=== PATIENT | male | born 1950 | race Caucasian/White ===

== ENCOUNTER 2016-12-18 10:14 | Inpatient (IN) | payer MEDICARE ==
[2016-12-18] VITALS (21 sets, daily range): BP systolic 105–180; BP diastolic 57–86; PULSE 67–80; RESP 16–26; TEMP 98.4–98.7; O2SAT 88–99
[~2016-12-18] VITALS: Ht 182.9 cm; Wt 110.4 kg
--- NOTE | 2016-12-18 10:29 | PD ---
HPI Chief Complaint: Head Injury Time Seen by Provider: 10:28 Travel History International Travel<30 days: No Contact w/Intl Traveler<30days: No Traveled to known affect area: No History of Present Illness HPI 66-year-old male came to the emergency room with history of head injury from a fall. Patient says that she was going to sit down in a chair when he lost control and fell forward and hit his head on another chair in front of him. Patient insists that he did not have a syncopal episode and did not pass out after hitting his head either. No history of dizziness. He does appear to be short of breath as he is talking. He has history of COPD. His oxygen saturation was 86% on room air and with 2 L of nasal cannula continues to be 88% . He is answering questions appropriately. However his eyes are closed and opens when I talk to him. Patient is on Plavix. Upon asking he said he had a fever last night but did not take temperature. He does have some sore throat. Patient requires oxygen during night. He was bleeding a lot from his wound which had some dressing on it. However the dressing was completely soaked been trickling down onto his face. He seems to be falling asleep as he is talking. PFSH Past Medical History Narrative Medical List of his past medical history as reviewed from the nursing note. Hx Anticoagulant Therapy: Yes Cardiovascular Problems: Yes Social History Tobacco Use: No Allergies-Medications (Allergen,Severity, Reaction): Coded Allergies: No Known Allergies (Unverified , 12/18/16) Comments No known allergies. Reported Meds & Prescriptions Reported Meds & Active Scripts Active Reported Glucotrol XL (Glipizide) 2.5 Mg Delores 2.5 Mg PO HS Take with breakfast or first main meal of the day Glucotrol XL (Glipizide) 2.5 Mg Delores 5 Mg PO DAILY Take with breakfast or first main meal of the day Cozaar (Losartan Potassium) 25 Mg Tab 25 Mg PO DAILY Januvia (Sitagliptin Phosphate) 100 Mg Tab 100 Mg PO DAILY Clopidogrel (Clopidogrel Bisulfate) 75 Mg Tab 75 Mg PO DAILY Lexapro (Escitalopram Oxalate) Unknown Strength Tab 10 Mg PO DAILY Narrative Medication List of his home medications reviewed from the nursing note. Review of Systems Except as stated in HPI: all other systems reviewed are Neg Physical Exam Narrative GENERAL: Lethargic, moderate respiratory distress, wakes up and answers questions appropriately. Blood on his face from the head wound SKIN: Warm and dry. HEAD: Large 5 cm horizontal laceration which is deep exposing the skull underneath on the left side of his forehead above the eyebrow. It's oozing blood constantly. EYES: Pupils equal and round. No scleral icterus. No injection or drainage. ENT: No nasal bleeding or discharge. Mucous membranes pink and moist. NECK: Trachea midline. No JVD. CARDIOVASCULAR: Regular rate and rhythm. No murmur appreciated. RESPIRATORY: No accessory muscle use. Clear to auscultation. Breath sounds equal bilaterally. GASTROINTESTINAL: Abdomen soft, non-tender, nondistended. Hepatic and splenic margins not palpable. MUSCULOSKELETAL: No obvious deformities. No clubbing. No cyanosis. Bilateral pedal edema. NEUROLOGICAL: GCS is 14. No obvious cranial nerve deficits. Motor grossly within normal limits. Normal speech. PSYCHIATRIC: Appropriate mood and affect; insight and judgment normal. Data Data Last Documented VS Vital Signs Date Time Temp Pulse Resp B/P Pulse Ox O2 Delivery O2 Flow Rate FiO2 12/18/16 13:40 99 100 12/18/16 13:35 73 16 105/58 Auto-Vent 12/18/16 12:55 15 12/18/16 10:16 98.4 Orders Basic Metabolic Panel (Bmp) (12/18/16 11:14) Complete Blood Count With Diff (12/18/16 11:14) Lidocai-Epi 1%-1:100,000 Inj (Xylocaine- (12/18/16 11:15) Tetanus-Diphther Tox Peds Inj (Tetanus-D (12/18/16 11:15) Prothrombin Time / Inr (Pt) (12/18/16 11:14) Ct Brain W/O Iv Contrast(Rout) (12/18/16 ) Electrocardiogram (12/18/16 ) Document Control Supervisor / Telemetry PEREZ.Q8H (12/18/16 11:14) Ecg Monitoring (12/18/16 11:14) Iv Access Insert/Monitor (12/18/16 11:14) Oximetry (12/18/16 11:14) Oxygen Administration (12/18/16 11:14) Methylprednisolone So Succ Inj (Solumedr (12/18/16 11:15) Albuterol-Ipratropium Neb (Duoneb Neb) (12/18/16 11:15) Sodium Chloride 0.9% Flush (Ns Flush) (12/18/16 11:15) Troponin I (12/18/16 11:14) B-Type Natriuretic Peptide (12/18/16 11:14) Chest, Single Ap (12/18/16 ) Rdvs-Ljf-Ncaine (Booster) Inj (Boostrix (12/18/16 11:40) Lorazepam Inj (Ativan Inj) (12/18/16 12:00) Tetanus/Diphtheria Tox Adult (Tetanus/Di (12/18/16 12:00) Furosemide Inj (Lasix Inj) (12/18/16 12:00) Arterial Blood Gas (Abg) (12/18/16 ) Propofol 1000 Mg/100 Ml Inj (Diprivan 10 (12/18/16 13:26) Succinylcholine Inj (Quelicin Inj) (12/18/16 13:45) Etomidate Inj (Amidate Inj) (12/18/16 13:45) Propofol 1000 Mg/100 Ml Inj (Diprivan 10 (12/18/16 13:45) ^ Infusion (12/18/16 13:36) RASS (12/18/16 13:36) Neurological Rass Scale PEREZ.Q2H (12/18/16 13:36) Urinary Catheter Insert/Apply (12/18/16 13:36) ^ Orogastric Tube (12/18/16 13:36) Sodium Chlor 0.9% 1000 Ml Inj (Ns 1000 M (12/18/16 13:45) Arterial Blood Gas (Abg) (12/18/16 14:15) Chest, Single Ap (12/18/16 ) Admit Order (Ed Use Only) (12/18/16 13:50) Labs Laboratory Tests Test 12/18/16 12/18/16 11:25 12:10 White Blood Count 7.8 TH/MM3 Red Blood Count 5.37 MIL/MM3 Hemoglobin 16.2 GM/DL Hematocrit 48.0 % Mean Corpuscular Volume 89.3 FL Mean Corpuscular Hemoglobin 30.1 PG Mean Corpuscular Hemoglobin 33.8 % Concent Red Cell Distribution Width 15.4 % Platelet Count 196 TH/MM3 Mean Platelet Volume 8.5 FL Neutrophils (%) (Auto) 61.5 % Lymphocytes (%) (Auto) 22.3 % Monocytes (%) (Auto) 13.9 % Eosinophils (%) (Auto) 1.7 % Basophils (%) (Auto) 0.6 % Neutrophils # (Auto) 4.8 TH/MM3 Lymphocytes # (Auto) 1.7 TH/MM3 Monocytes # (Auto) 1.1 TH/MM3 Eosinophils # (Auto) 0.1 TH/MM3 Basophils # (Auto) 0.0 TH/MM3 CBC Comment DIFF FINAL Differential Comment Prothrombin Time 12.7 SEC Prothromb Time International 1.1 RATIO Ratio Sodium Level 141 MEQ/L Potassium Level 3.7 MEQ/L Chloride Level 102 MEQ/L Carbon Dioxide Level 33.7 MEQ/L Anion Gap 5 MEQ/L Blood Urea Nitrogen 15 MG/DL Creatinine 0.88 MG/DL Estimat Glomerular Filtration 87 ML/MIN Rate Random Glucose 114 MG/DL Calcium Level 9.0 MG/DL Troponin I 0.03 NG/ML B-Type Natriuretic Peptide 36 PG/ML Lipase 114 U/L Blood Gas Puncture Site RT RADIAL Blood Gas Patient Temperature 98.6 Blood Gas HCO3 29 mmol/L Blood Gas Base Excess 3.1 mmol/L Blood Gas Oxygen Saturation 85 % Arterial Blood pH 7.28 Arterial Blood Partial 64 mmHg Pressure CO2 Arterial Blood Partial 64 mmHG Pressure O2 Arterial Blood Oxygen Content 20.2 Vol % Arterial Blood 4.2 % Carboxyhemoglobin Arterial Blood Methemoglobin 2.0 % Blood Gas Hemoglobin 16.9 G/DL Oxygen Delivery Device NASAL CANNULA Blood Gas Liter Flow 4 L/M MDM Medical Decision Making Medical Screen Exam Complete: Yes Emergency Medical Condition: Yes Medical Record Reviewed: Yes Interpretation(s) Twelve-lead EKG was reviewed by me. Normal sinus rhythm, left axis deviation, left bundle branch block. Heart rate of 74 bpm. Differential Diagnosis Intracranial bleed, complex laceration, COPD exacerbation, pneumonia, CHF Narrative Course 11:49 AM awaiting for the blood test result. Awaiting for the CAT scan of the head to be done and resulted. I ordered 2 DuoNeb times and IV Solu-Medrol. Patient tolerated the laceration repair well. 12:19 PM patient was taken to CT but refused to lay flat since it makes him acutely short of breath. They had To bring him back. I spoke with the patient and he says that he's been feeling like this for past 3-4 months. At this point his symptoms sound more like congestive heart failure. I have ordered 40 mg of Lasix IV. I will also given him 0.5 mg of IV Ativan so that the scan can be done. I'm really concerned about intracranial bleed given his mental status and his head injury. Hence I definitely want the CT scan. When he comes back I will reevaluate him. 1:32 PM I had ordered a blood gas which was done just before patient went to CT and it showed respiratory acidosis. I had ordered a BiPAP and patient was tolerating BiPAP okay until half an hour ago when he got very somnolent and hard to awake. GCS at this point was 9. Patient was drooling. I decided to intubate him. Patient has tolerated intubation well. Awaiting for a chest x- ray for tube confirmation. I've ordered a second ABG 45 minutes after the ventilator. Awaiting for the commercial real estate manager to call back for admission. Critical Care Narrative Aggregate critical care time was 60 minutes. Time to perform other separately billable procedures was not included in the critical care time. My time did not include minutes spent treating any other patients simultaneously or on activities that did not directly contribute to the patient's treatment. The services I provided to this patient were to treat and/or prevent clinically significant deterioration that could result in: Altered mental status, respiratory distress, respiratory failure, ventilator management I provided critical care services requiring my management, as noted below: Chart data review, documentation time, medication orders and management, vital sign assessments/reviewing monitor data, ordering and reviewing lab tests, ordering and interpreting/reviewing x-rays and diagnostic studies, care of the patient and discussion of the patient with the admitting physicians. Procedures Procedure Narrative Complex laceration repair: The wound was cleaned with gauze soaked with sterile saline. Wound was infiltrated with 7 mL of 1% lidocaine with epi. 5 interrupted sutures with 3-0 Prolene was used. I applied deeper bite to get the subcutaneous tissue as well. Bleeding was well controlled after that and wound edges approximated well. Triple antibiotic ointment was applied and wound was wrapped with gauze and Curlex. Ice bag was applied to minimize subcutaneous hematoma. Patient tolerated the procedure well. After the risks and benefits were discussed the following procedure was performed: INTUBATION: The patient was put in optimal position for the procedure. Rapid sequence intubation was initiated by me using 20 milligrams of etomidate IV and 100 milligrams of succinylcholine IV. The patient was intubated with a 7.5 cuffed endotracheal tube. Tube placement was confirmed by visualization of the tube and balloon passing through the cords, capnometry and subsequent chest x-ray. Breath sounds were equal and well aerated bilaterally postintubation. No breath sounds over stomach. Patient tolerated procedure well. EKG Prior to Arrival: No Physician Communication Physician Communication Dr. Westbrook Diagnosis Primary Impression: Respiratory failure Qualified Code: J96.01 - Acute respiratory failure with hypoxia and hypercapnia Additional Impressions: Respiratory acidosis Fall Qualified Code: W19.XXXA - Fall, initial encounter Head injury Qualified Code: S09.90XA - Head injury, initial encounter Laceration of forehead, left, complicated Qualified Code: S01.81XA - Laceration of forehead, left, complicated, initial encounter Admitting Information Admitting Physician Requests: Admit Bre Leung MD Dec 18, 2016 10:29
[2016-12-18] MEDS ORDERED: LEXA10TA PO (10:32)
[2016-12-18] MEDS ORDERED: COZA25TA PO (10:46)
[2016-12-18] MEDS ORDERED: CLOP75TA PO (10:46)
[2016-12-18] MEDS ORDERED: SITA1TAB2 PO (10:46)
[2016-12-18] MEDS ORDERED: [UNRECOGNIZED DRUG - CODE] PO ×2 (10:46→10:47)
[2016-12-18] MEDS ORDERED: TETANUS/DIPHTHERIA TOXOID PEDIATRIC 0.5 ML VIAL IM ONE (11:15)
[2016-12-18] MEDS ORDERED: LIDOCAINE 1%/EPINEPHrine 1:100,000 SOLN 20 ML VIAL INFIL ONE (11:15)
[2016-12-18] MEDS ORDERED: methylPREDNISolone SOD SUCC 125 MG/2 ML VIAL IVP ONE (11:15)
[2016-12-18] MEDS ORDERED: SODIUM CHLORIDE 0.9% FLUSH 5 ML FLUSH IVF PRN (11:15)
[2016-12-18] MEDS: RESP: ALBUTEROL 2.5 MG/IPRATROPIUM 0.5 MG NEB (SCH) INH ×4 (11:37→23:54)
[2016-12-18 11:38] LABS: AUTOMATED NEUTROPHIL # 4.8 TH/MM3 (1.8-7.7); BASOPHIL % 0.6 % (0.0-2.0); EOSINOPHIL # 0.1 TH/MM3 (0-0.4); EOSINOPHIL % 1.7 % (0.0-4.0); HEMO FLAGS DIFF FINAL; LYMPH % 22.3 % (9.0-44.0); LYMPHOCYTE # 1.7 TH/MM3 (1.0-4.8); MEAN CELL VOLUME 89.3 FL (80.0-100.0); MEAN CORPUSCULAR HEMOGLOBIN 30.1 PG (27.0-34.0); MEAN CORPUSCULAR HGB CONC 33.8 % (32.0-36.0); MONO % 13.9 % (0.0-8.0); NEUT % 61.5 % (16.0-70.0); PLATELET COUNT 196 TH/MM3 (150-450); RED BLOOD COUNT 5.37 MIL/MM3 (4.50-5.90); RED CELL DISTRIBUTION WIDTH 15.4 % (11.6-17.2); WHITE BLOOD COUNT 7.8 TH/MM3 (4.0-11.0)
[2016-12-18] MEDS ORDERED: DIPHTH/TETANUS/ACEL PERTUSSIS (BOOSTER) 0.5 ML VIAL/PFS IM ONE (11:40)
[2016-12-18 11:49] LABS: INTERNATIONAL NORMALIZED RATIO 1.1 RATIO; PROTHROMBIN TIME - PATIENT 12.7 SEC (9.8-11.6)
[2016-12-18] MEDS ORDERED: FUROSEMIDE 40 MG/4 ML VIAL IV PUSH ONE (12:00)
[2016-12-18] MEDS ORDERED: LORazepam 2 MG/ML VIAL IV PUSH ONE (12:00)
[2016-12-18] MEDS ORDERED: TETANUS/DIPHTHERIA TOXOID ADULT 0.5 ML VIAL IM ONE (12:00)
--- NOTE | 2016-12-18 12:01 | RADRPT ---
EXAM DATE/TIME: 12/18/2016 11:44 [facility] COMPARISON: No previous studies available for comparison. INDICATIONS : Head injury, fall from standing. MEDICAL HISTORY : Aneurysm, abdominal. Chronic obstructive pulmonary disease. Diabetes. SURGICAL HISTORY : Abdominal aortic aneurysm repair. ENCOUNTER: Initial ACUITY: 1 day PAIN SCORE: 0/10 LOCATION: Forehead. FINDINGS: A single view of the chest demonstrates diminished lung volumes and bibasilar atelectasis. The cardio mediastinal contours are unremarkable. Osseous structures are intact. CONCLUSION: Diminished lung volumes and bibasilar atelectasis. Teodoro Lawson MD on December 18, 2016 at 11:59 Board Certified Radiologist. This report was verified electronically.
[2016-12-18 12:02] LABS: BICARBONATE 33.7 MEQ/L (21.0-32.0); POTASSIUM 3.7 MEQ/L (3.5-5.1)
[2016-12-18 12:31] LABS: BLOOD GAS BASE EXCESS 3.1 mmol/L (-2-2); BLOOD GAS CARBOXYHEMOGLOBIN 4.2 % (0-4); BLOOD GAS HCO3 29 mmol/L (22-26); BLOOD GAS O2 HGB SATURATION 85 % (90-100); BLOOD GAS OXYGEN CONTENT 20.2 Vol % (12.0-20.0); BLOOD GAS PCO2 64 mmHg (38-42); BLOOD GAS PO2 64 mmHG (61-120); BLOOD GAS TOTAL HGB 16.9 G/DL (12.0-16.0); CRITICAL VALUE YES; LITER FLOW 4 L/M; OXYGEN DEVICE NASAL CANNULA; TEMP CORR TO 98.6
[2016-12-18 12:32] LABS: DRAW SITE RT RADIAL; NUMBER OF ARTERIAL PUNCTURES 1; STAT YES; ULNAR PULSE PRESENT
--- NOTE | 2016-12-18 13:02 | RADRPT ---
EXAM DATE/TIME: 12/18/2016 12:29 [facility] COMPARISON: No previous studies available for comparison. INDICATIONS : Trauma; fall, laceration to forehead. RADIATION DOSE: 52.79 CTDIvol (mGy) MEDICAL HISTORY : Cardiovascular disease. Chronic obstructive pulmonary disease. Aneurysm, abdominal. SURGICAL HISTORY : Abdominal aortic aneurysm repair. ENCOUNTER: Initial ACUITY: 1 day PAIN SCALE: 5/10 LOCATION: Right frontal TECHNIQUE: Multiple contiguous axial images were obtained of the head. Using automated exposure control and adj ustment of the mA and/or kV according to patient size, radiation dose was kept as low as reasonably a chievable to obtain optimal diagnostic quality images. FINDINGS: CEREBRUM: The ventricles are normal for age. No evidence of midline shift, mass lesion, hemorrhage or acute in farction. No extra-axial fluid collections are seen. POSTERIOR FOSSA: The cerebellum and brainstem are intact. The 4th ventricle is midline. The cerebellopontine angle i s unremarkable. EXTRACRANIAL: The visualized portion of the orbits is intact. SKULL: The calvaria is intact. No evidence of skull fracture. CONCLUSION: No acute intracranial disease. Teodoro Lawson MD on December 18, 2016 at 13:00 Board Certified Radiologist. This report was verified electronically.
[2016-12-18] MEDS ORDERED: PROPOFOL 1000 MG/100 ML INJ 100 ML ONE (13:26)
[2016-12-18] MEDS ORDERED: PROPOFOL 1000 MG/100 ML INJ 100 ML IV SCH (13:45)
[2016-12-18] MEDS ORDERED: SUCCINYLCHOLINE CHLORIDE 200 MG/10 ML VIAL IV PUSH ONE (13:45)
[2016-12-18] MEDS ORDERED: ETOMIDATE 20 MG/10 ML VIAL IV PUSH ONE (13:45)
[2016-12-18] MEDS ORDERED: SODIUM CHLOR 0.9% 1000 ML INJ 1,000 ML IV ONE (13:45)
--- NOTE | 2016-12-18 14:04 | RADRPT ---
EXAM DATE/TIME: 12/18/2016 13:55 [facility] COMPARISON: CHEST SINGLE AP, December 18, 2016, 11:44. INDICATIONS : Status post intubation. MEDICAL HISTORY : Aneurysm, abdominal. Chronic obstructive pulmonary disease. Diabetes. SURGICAL HISTORY : None. ENCOUNTER: Initial ACUITY: 1 day PAIN SCORE: Non-responsive. LOCATION: chest FINDINGS: A single view of the chest demonstrates minimal bibasilar atelectasis. Endotracheal tube 8 cm above the lorenza. The cardiomediastinal contours are unremarkable. Osseous structures are intact. CONCLUSION: Endotracheal tube 8 centimeters above the lorenza. Bibasilar atelectasis. Teodoro Lawson MD on December 18, 2016 at 14:00 Board Certified Radiologist. This report was verified electronically.
[2016-12-18] MEDS: RESP: ALBUTEROL 2.5 MG/3 ML NEB (SCH) INH (14:26)
[2016-12-18 14:39] LABS: BLOOD GAS CARBOXYHEMOGLOBIN 3.3 % (0-4); BLOOD GAS HCO3 28 mmol/L (22-26); BLOOD GAS METHEMOGLOBIN 1.9 % (0-2); BLOOD GAS O2 HGB SATURATION 94 % (90-100); BLOOD GAS OXYGEN CONTENT 21.6 Vol % (12.0-20.0); BLOOD GAS PCO2 58 mmHg (38-42); BLOOD GAS PO2 201 mmHG (61-120); BLOOD GAS TOTAL HGB 16.1 G/DL (12.0-16.0); TEMP CORR TO 98.6
[2016-12-18 14:40] LABS: CRITICAL VALUE YES; DRAW SITE RT RADIAL; FIO2 100 %; NUMBER OF ARTERIAL PUNCTURES 1; OXYGEN DEVICE VENTILATOR; STAT YES; ULNAR PULSE PRESENT; VENT SETTINGS 550/16/PEEP5
[2016-12-18] MEDS ORDERED: POTASSIUM CL 40 MEQ/30 ML LIQ UDC PO/TUBE PRN ×2 (15:00)
[2016-12-18] MEDS ORDERED: MISCELLANEOUS NURSING INFORMATION XX SCH (15:00)
[2016-12-18] MEDS ORDERED: POTASSIUM CHLOR 40 MEQ PREMIX 100 ML IV PRN ×2 (15:00)
[2016-12-18] MEDS ORDERED: ONDANSETRON HCL 4 MG/2 ML VIAL IV PRN (15:00)
[2016-12-18] MEDS ORDERED: SENNOSIDES 8.6 MG TAB PO PRN (15:00)
[2016-12-18] MEDS ORDERED: POTASSIUM CHLOR 20 MEQ PREMIX 100 ML IV PRN ×2 (15:00)
[2016-12-18] MEDS ORDERED: POTASSIUM PHOSPHATE MONOBASIC 500 MG TAB PO PRN (15:00)
[2016-12-18] MEDS ORDERED: POTASSIUM PHOSPHATE INJ 30 MMOL in SODIUM CHLOR 0.9% 250 ML INJ 250 ML IV PRN (15:00)
[2016-12-18] MEDS ORDERED: fentaNYL DRIP 250 ML IV SCH (15:00)
[2016-12-18] MEDS ORDERED: GLUCAGON 1 MG/ML VIAL OTHER PRN (15:00)
[2016-12-18] MEDS ORDERED: POTASSIUM PHOSPHATE MONOBASIC 500 MG TAB PO/TUBE PRN (15:00)
[2016-12-18] MEDS ORDERED: RESP: ALBUTEROL 2.5 MG/IPRATROPIUM 0.5 MG NEB (PRN) INH (15:00)
[2016-12-18] MEDS ORDERED: CHLORHEXIDINE GLUCONATE 2 % 1 PACK (2 CLOTHS) TOP PRN (15:00)
[2016-12-18] MEDS ORDERED: MAGNESIUM SULFATE INJ 4 GM in SODIUM CHLORIDE 0.9% INJ 92 ML IV PRN (15:00)
[2016-12-18] MEDS ORDERED: MAGNESIUM OXIDE 400 MG TAB PO PRN (15:00)
[2016-12-18] MEDS ORDERED: SODIUM PHOSPHATE INJ 30 MMOL in SODIUM CHLOR 0.9% 250 ML INJ 240 ML IV PRN (15:00)
[2016-12-18] MEDS ORDERED: MAGNESIUM SULFATE INJ 2 GM in SODIUM CHLORIDE 0.9% INJ 96 ML IV PRN (15:00)
[2016-12-18] MEDS ORDERED: SODIUM CHLORIDE 0.9% FLUSH 5 ML FLUSH IV FLUSH PRN (15:00)
[2016-12-18] MEDS ORDERED: DEXTROSE 50% IN WATER 50 ML VIAL(D50) IV PUSH PRN (15:00)
--- NOTE | 2016-12-18 15:25 | HHI.HP ---
[facility] Service Critical Care Medicine Primary Care Physician Non-Staff Admission Diagnosis respiratory failure, fall, head injury, laceration, COPD exacerbatio Diagnosis: (1) Respiratory acidosis Diagnosis: Principal (2) Respiratory failure Diagnosis: Principal (3) Head injury Diagnosis: Principal (4) Fall Diagnosis: Principal (5) Laceration of forehead, left, complicated Diagnosis: Principal (6) Coronary artery disease Diagnosis: Principal (7) Depression Diagnosis: Principal (8) COPD (chronic obstructive pulmonary disease) Diagnosis: Principal (9) Dyslipidemia Diagnosis: Principal (10) Peripheral vascular disease Diagnosis: Principal (11) Diabetes Diagnosis: Principal (12) History of coronary artery bypass graft Diagnosis: Principal (13) History of AAA (abdominal aortic aneurysm) repair Diagnosis: Principal Chief Complaint: Status post fall/left head laceration and shortness of breath Travel History International Travel<30 Days: No Contact w/Intl Traveler <30 Da: No Traveled to Known Affected Are: No History of Present Illness 66-year-old male. Date of admission 12/18/2016. Past medical history includes hypertension, dyslipidemia, COPD oxygen dependent at night, depression , diabetes mellitus peripheral vascular disease with history of a CABG and AAA repair and left leg bypass?. He presented to [facility] ED with history of head injury from a fall. Patient says that she was going to sit down in a chair when he lost control and fell forward and hit his head on another chair in front of him. His oxygen saturation was 86% on room air and with 2 L of nasal cannula continues to be 88%. He is answering questions appropriately. However his eyes are closed and opens when I talk to him. Patient is on Plavix. Upon asking he said he had a fever last night but did not take temperature. Patient is a 5 cm aspiration sedation the ED he received his tetanus shot. Coronary records, patient became more short of breath. Stat CT head revealed no acute intracranial findings. Patient placed on BiPAP and given 0.5 mg Ativan IV, 40 mg Lasix IV, 125 mg IV Solu-Medrol followed by 3 DuoNeb therapies. Chest x-ray revealed no acute cardio pulmonary findings. Patient was intubated using 20 mg etomidate 100 mg succinylcholine. Follow chest x-ray revealed ET tube 8 cm above the lorenza. We are asked to admit. Patient is currently sedated on the ventilator and on 30 mg/kg/m of propofol drip. Review of Systems ROS Limitations: Intubated Past Family Social History Allergies: Coded Allergies: No Known Allergies (Unverified , 12/18/16) Past Medical History Hypertension Dyslipidemia COPD Depression Diabetes mellitus Past Surgical History History of CABG April 2016 History AAA repair Left leg vascular bypass unknown type Reported Medications Cozaar 25 mg by mouth daily Lexapro 10 mg by mouth daily Januvia 100 mg by mouth daily Plavix 75 mg by mouth daily Glucotrol XL 5 mg a.m. and 2.5 mg p.m. Active Ordered Medications Reviewed in EMR Family History Unknown Social History Unknown/not documented Physical Exam Vital Signs Vital Signs Date Time Temp Pulse Resp B/P Pulse Ox O2 Delivery O2 Flow Rate FiO2 12/18/16 14:42 69 16 121/63 98 Auto-Vent 12/18/16 14:07 74 16 126/57 97 Auto-Vent 12/18/16 13:40 99 100 12/18/16 13:35 73 16 105/58 96 Auto-Vent 12/18/16 12:55 77 22 174/76 92 BiPAP 15 12/18/16 12:48 26 93 BiPAP 15 12/18/16 12:48 90 Nasal Cannula 3 12/18/16 12:40 92 40 12/18/16 11:30 74 26 159/61 90 Nasal Cannula 4 12/18/16 11:13 90 Nasal Cannula 3.00 12/18/16 10:16 98.4 80 20 180/86 88 Room Air Physical Exam GENERAL: 66-year-old male, critically ill currently orotracheally intubated SKIN: Warm and dry. 5 severe laceration above left eye suture. HEAD: Normocephalic. EYES: Pupils equal and round 3 mm bilaterally and reactive. No scleral icterus. No injection or drainage. ENT: No nasal bleeding or discharge. Mucous membranes pink and moist. NECK: Trachea midline. No JVD. CARDIOVASCULAR: Regular rate and rhythm. S1, S2. No S4. 2/6 systolic murmur throughout the precordium RESPIRATORY: Positive end expiratory wheeze. Coarse crackles appreciated bilaterally. Breath sounds equal bilaterally. GASTROINTESTINAL: Abdomen soft, non-tender, nondistended. Prior midline scar from xiphoid process to suprapubic region noted. MUSCULOSKELETAL: Extremities with 1+ nonpitting edema. Ecchymosis to the medial aspect of the left ankle noted NEUROLOGICAL: Sedated on the ventilator. Positive gag. Positive corneal reflex. Moving all 4 extremity spontaneously/withdrawal to pain. Laboratory Laboratory Tests Test 12/18/16 12/18/16 12/18/16 11:25 12:10 14:29 White Blood Count 7.8 Red Blood Count 5.37 Hemoglobin 16.2 Hematocrit 48.0 Mean Corpuscular Volume 89.3 Mean Corpuscular Hemoglobin 30.1 Mean Corpuscular Hemoglobin 33.8 Concent Red Cell Distribution Width 15.4 Platelet Count 196 Mean Platelet Volume 8.5 Neutrophils (%) (Auto) 61.5 Lymphocytes (%) (Auto) 22.3 Monocytes (%) (Auto) 13.9 Eosinophils (%) (Auto) 1.7 Basophils (%) (Auto) 0.6 Neutrophils # (Auto) 4.8 Lymphocytes # (Auto) 1.7 Monocytes # (Auto) 1.1 Eosinophils # (Auto) 0.1 Basophils # (Auto) 0.0 CBC Comment DIFF FINAL Differential Comment Prothrombin Time 12.7 Prothromb Time International 1.1 Ratio Sodium Level 141 Potassium Level 3.7 Chloride Level 102 Carbon Dioxide Level 33.7 Anion Gap 5 Blood Urea Nitrogen 15 Creatinine 0.88 Estimat Glomerular Filtration 87 Rate Random Glucose 114 Calcium Level 9.0 Troponin I 0.03 B-Type Natriuretic Peptide 36 Blood Gas Puncture Site RT RADIAL RT RADIAL Blood Gas Patient Temperature 98.6 98.6 Blood Gas HCO3 29 28 Blood Gas Base Excess 3.1 2.0 Blood Gas Oxygen Saturation 85 94 Arterial Blood pH 7.28 7.30 Arterial Blood Partial 64 58 Pressure CO2 Arterial Blood Partial 64 201 Pressure O2 Arterial Blood Oxygen Content 20.2 21.6 Arterial Blood 4.2 3.3 Carboxyhemoglobin Arterial Blood Methemoglobin 2.0 1.9 Blood Gas Hemoglobin 16.9 16.1 Oxygen Delivery Device NASAL CANNULA VENTILATOR Blood Gas Liter Flow 4 Blood Gas Ventilator Setting 550/16/PEEP5 Blood Gas Inspired Oxygen 100 Result Diagram: 12/18/16 1125 12/18/16 1125 Imaging Last Impressions Head CT 12/18/16 0000 Signed Impressions: Service Date/Time: Sunday, December 18, 2016 12:29 - CONCLUSION: No acute intracranial disease. Teodoro Lawson MD Chest X-Ray 12/18/16 0000 Signed Impressions: Service Date/Time: Sunday, December 18, 2016 13:55 - CONCLUSION: Endotracheal tube 8 centimeters above the lorenza. Bibasilar atelectasis. Teodoro Lawson MD Assessment and Plan Assessment and Plan Neuro/Psych: Depression Currently on propofol 40 mcg/kg per minute/fentanyl drip as needed for sedation/ analgesia while intubated Goal of CELINE as a -2 Daily sedation vacation Continue Lexapro 10 mill grams by mouth daily/home medication CT head without contrast 12/18 revealed no acute cranial findings. MRI brain ordered Received tetanus shot forehead laceration CV: Coronary artery disease Hypertension Dyslipidemia History of AAA repair Peripheral vascular disease Bundle-branch block/left EKG revealed normal sinus rhythm. Left axis deviation. Left bundle branch block. Troponin within normal limits. Will cycle troponins/check 2-D echo. Currently on normal saline at 84 cc an hour. Not requiring antihypertensive or vasopressors at the present time Continue Plavix at 75 cc an hour/home medication Need to obtain home records regarding patient's cardiac/vascular diagnoses Resp: Acute hypoxemic hypercapnic respiratory failure History COPD ACV 18/600/5/40 Ventilator bundle DuoNeb therapy every 4 hours and as needed Add Pulmicort twice a day Solu-Medrol 40 every 8/pulmonary dose Check CTA chest GI: Start Glucerna 1.5 goal 50 cc an hour Protonix for GI prophylaxis Colace/as needed Senokot for bowel regimen : [place] for accurate I's and O's in a critically ill patient Endo: Diabetes mellitus Sliding scale insulin to maintain euglycemia. Accu-Cheks every 6 hours/medium regimen Hold Januvia 100 mg daily Glucotrol XL 5 mg a.m./2.5 mg p.m. Renal: Creatinine currently within normal limits Currently on normal saline at 84 cc an hour. Monitor urine output closely. Accurate I's and O's Heme: CBC within normal limits ID: Initiate cefepime/Zithromax day 1 history of fever Blood cultures 2, sputum, UA, Legionella and pneumococcal antigens, influenza all ordered FEN: Replace electrolytes as clinically indicated per ICU I protocol Msk: PT evaluate and treat Access - Utilize peripheral IV. Central line if indicated Prophylaxis - GI - Protonix - DVT - SCD/heparin Code Status Full code Discussed Condition With Dr. Leung/ED physician and RN. Care plan discussed all questions asked. Attempting to find next of kin. Patient stated prior to intubation he did not want anyone notified. is Celia Sheehan [address] [facility] [phone]. ED RN left message as she did not answer phone to call back. Problem Qualifiers (1) Respiratory failure: Qualified Code: J96.01 - Acute respiratory failure with hypoxia and hypercapnia (2) Head injury: Qualified Code: S09.90XA - Head injury, initial encounter (3) Fall: Qualified Code: W19.XXXA - Fall, initial encounter (4) Laceration of forehead, left, complicated: Qualified Code: S01.81XA - Laceration of forehead, left, complicated, initial encounter (5) Coronary artery disease: (6) Depression: Qualified Code: F33.9 - Recurrent major depressive disorder, remission status unspecified (7) COPD (chronic obstructive pulmonary disease): Qualified Code: J44.9 - Chronic obstructive pulmonary disease, unspecified COPD type (8) Diabetes: Qualified Code: E11.8 - Type 2 diabetes mellitus with complication, without long-term current use of insulin Emmanuel Westbrook MD Dec 18, 2016 15:25
[2016-12-18] MEDS: SODIUM CHLOR 0.9% 1000 ML INJ 1,000 ML IV SCH ×2 (15:33→22:56)
[2016-12-18 15:43] LABS: BACTERIA, URINE RARE /hpf; BLOOD, URINE NEG (NEG); GLUCOSE,URINE NEG (NEG); KETONE, URINE 10 mg/dL (NEG); MUCUS URINE FEW /lpf (OCC); NITRITE,URINE NEG (NEG); PH, URINE 5.5 (5.0-8.5); URINE COLOR YELLOW (YELLW/STRAW)
[2016-12-18 15:44] LABS: COMMENT (UR) CATH-CULTURE IND; CULTURE IF INDICATED CATH CULTURE IND
[2016-12-18] MEDS: AZITHROMYCIN INJ 500 MG in SODIUM CHLOR 0.9% 250 ML INJ 250 ML IV SCH ×2 (16:58→20:53)
[2016-12-18] MEDS: HEPARIN SODIUM - SQ 10,000 UNITS/ML VIAL SQ SCH ×2 (16:58→23:02)
[2016-12-18] MEDS: CEFEPIME INJ 2,000 MG in SODIUM CHLORIDE 0.9% INJ 100 ML IV SCH ×2 (17:00→23:02)
--- NOTE | 2016-12-18 17:00 | RADRPT ---
EXAM DATE/TIME: 12/18/2016 15:38 [facility] COMPARISON: No previous studies available for comparison. INDICATIONS : Abdominal pain. MEDICAL HISTORY : Myocardial infarction. Chronic obstructive pulmonary disease. Abdominal aortic aneurysm. Anticoagul ant therapy. SURGICAL HISTORY : Abdominal aortic aneurysm repair. Coronary stent. Arterial surgery, left leg. ENCOUNTER: Initial ACUITY: 1 day PAIN SCORE: Nonresponsive. LOCATION: Abdomen. MEASUREMENTS: LIVER: 21.9 cm length COMMON DUCT: 5 mm RIGHT KIDNEY: 14.9 x 7.1 x 6.0 cm LEFT KIDNEY: 13.4 x 7.0 x 6.0 cm SPLEEN: 10.6 cm length AORTA: 2.6cm maximal FINDINGS: Liver enlarged at 21.9 cm with fatty infiltration. Pancreas not visualized. Gallbladder, right kidney , common bile duct, aorta and IVC within normal limits. Multiple cysts noted in the left kidney measu ring up to 3.2 cm lower pole and 1.4 cm in the upper pole. CONCLUSION: 1. Enlarged fatty liver. 2. No free fluid. Multiple renal cysts. No gallstones. Tuan Rothman MD on December 18, 2016 at 16:57 Board Certified Radiologist. This report was verified electronically.
--- NOTE | 2016-12-18 17:11 | RADRPT ---
EXAM DATE/TIME: 12/18/2016 15:58 [facility] COMPARISON: No previous studies available for comparison. INDICATIONS : Bilateral lower extremity edema. MEDICAL HISTORY : Chronic obstructive pulmonary disease. Myocardial infarction. Abdominal aortic aneurysm. Anticoagula nt therapy. SURGICAL HISTORY : Abdominal aortic aneurysm repair. Coronary stent. Arterial surgery, left leg. ENCOUNTER: Initial ACUITY: 1 day PAIN SCORE: Non-responsive LOCATION: Bilateral legs. TECHNIQUE: Venous ultrasound of the left and right leg was performed from the inguinal ligament to the proximal calf. Real-time, color Doppler and spectral tracing, compression and augmentation techniques were us ed. FINDINGS: RIGHT LEG: There is normal compressibility of the deep venous system from the inguinal region to the proximal ca lf. No echogenic clot is seen in the lumen of the common femoral, femoral, popliteal, and posterior tibial veins. There is a normal response of the venous system to proximal and distal augmentation an d respiration. LEFT LEG: There is normal compressibility of the deep venous system from the inguinal region to the proximal ca lf. No echogenic clot is seen in the lumen of the common femoral, femoral, popliteal, and posterior tibial veins. There is a normal response of the venous system to proximal and distal augmentation an d respiration. CONCLUSION: 1. Negative for deep venous thrombosis. 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 Tuan Rothman MD on December 18, 2016 at 17:09 Board Certified Radiologist. This report was verified electronically.
[2016-12-18] MEDS: ARTIFICIAL TEARS OPTH SOLN 15 ML BTL EACH EYE SCH (18:00)
[2016-12-18] MEDS ORDERED: IOHEXOL 350 MG/ML 10 ML VIAL (for RAD DIAG) IV ONE (18:11)
--- NOTE | 2016-12-18 18:36 | RADRPT ---
EXAM DATE/TIME: 12/18/2016 17:46 [facility] COMPARISON: No previous studies available for comparison. INDICATIONS : Respiratory failure; evaluate for embolism. IV CONTRAST: 75 cc Omnipaque 350 (iohexol) IV RADIATION DOSE: 23.69 CTDIvol (mGy) MEDICAL HISTORY : Cardiovascular disease. Congestive heart failure. SURGICAL HISTORY : AAA repair. ENCOUNTER: Initial ACUITY: 1 day PAIN SCALE: Non-responsive LOCATION: cranial TECHNIQUE: Volumetric scanning of the chest was performed using a pulmonary embolism protocol MIP images were re constructed. Using automated exposure control and adjustment of the mA and/or kV according to patien t size, radiation dose was kept as low as reasonably achievable to obtain optimal diagnostic quality images. FINDINGS: No filling defects identified in the pulmonary arteries to suggest pulmonary embolic disease. There i s bibasal airspace disease, right greater than left. No pneumothorax. Endotracheal tube tip in satisf actory position. Moderate to severe coronary calcifications. NG tip in the stomach. No acute findings in the upper abdomen. CONCLUSION: 1. Negative for pulmonary embolus. 2. Basilar and dependent atelectasis in both lungs. 3. Endotracheal tube and nasogastric tube in satisfactory position. Tuan Rothman MD on December 18, 2016 at 18:32 Board Certified Radiologist. This report was verified electronically.
[2016-12-18] MEDS ORDERED: ETOMIDATE 40 MG/20 ML VIAL ONE (18:48)
--- NOTE | 2016-12-18 19:13 | RADRPT ---
EXAM DATE/TIME: 12/18/2016 18:09 [facility] COMPARISON: No previous studies available for comparison. INDICATIONS : Head injury after fall. AMS. MEDICAL HISTORY : Diabetes mellitus type 2. SURGICAL HISTORY : Abdominal aortic aneurysm repair. CABG ENCOUNTER: Initial ACUITY: 1 day PAIN SCORE: 0/10 LOCATION: cranial TECHNIQUE: Multiplanar, multisequence MRI of the brain was performed without contrast. FINDINGS: CEREBRUM: The ventricles are normal for age. No evidence of midline shift, mass lesion, hemorrhage or acute in farction. No extraaxial fluid collections are seen. The pituitary gland and suprasellar cistern are normal in configuration.WHITE MATTER: Mild signal abnormalities are seen in the white matter. POSTERIOR FOSSA: The cerebellum and brainstem are intact. The 4th ventricle is midline. The cerebellopontine angle is unremarkable. The cerebellar tonsils are normal in position. DIFFUSION IMAGING: No focal areas of restricted diffusion are seen. No evidence of acute infarction. EXTRACRANIAL: The visualized portions of the orbits and paranasal sinuses are unremarkable. CONCLUSION: 1. Mild signal abnormalities in the periventricular white matter and in the brainstem characteristic of chronic ischemic changes. No mass, hemorrhage or shift. No recent infarction. Tuan Rothman MD on December 18, 2016 at 19:09 Board Certified Radiologist. This report was verified electronically.
[2016-12-18] MEDS: SODIUM CHLORIDE 0.9% FLUSH 5 ML FLUSH IV FLUSH SCH (19:40)
[2016-12-18] MEDS: DOCUSATE SODIUM 100 MG CAP PO SCH (19:41)
[2016-12-18] MEDS: RESP: BUDESONIDE 0.5 MG/2 ML NEB NEB SCH (19:54)
[2016-12-18 20:22] LABS: INDIRECT BILIRUBIN 0.7 MG/DL (0.0-0.8); TOTAL BILIRUBIN ADULT 0.9 MG/DL (0.2-1.0)
[2016-12-18] MEDS: methylPREDNISolone SOD SUCC 40 MG/1 ML VIAL IV PUSH SCH (20:25)
[2016-12-18] MEDS: INSULIN NovoLIN REGULAR SUPPLEMENTAL SCALE SQ SCH ×2 (20:25→22:59)
[2016-12-18] MEDS: PROPOFOL 1000 MG/100 ML INJ 100 ML IV SCH (20:29)
[2016-12-18] MEDS: CHLORHEXIDINE GLUCONATE 2 % 1 PACK (2 CLOTHS) TOP SCH (21:31)
[2016-12-19] VITALS (15 sets, daily range): BP systolic 117–144; BP diastolic 61–76; PULSE 67–73; RESP 18–19; TEMP 97.9–98.8; O2SAT 94–97
[2016-12-19] MEDS: PROPOFOL 1000 MG/100 ML INJ 100 ML IV SCH ×7 (00:46→22:30)
[2016-12-19 02:29] LABS: AUTOMATED NEUTROPHIL # 5.7 TH/MM3 (1.8-7.7); BASOPHIL % 0.2 % (0.0-2.0); EOSINOPHIL % 0.1 % (0.0-4.0); HEMATOCRIT 45.6 % (39.0-51.0); HEMO FLAGS DIFF FINAL; LYMPH % 12.5 % (9.0-44.0); LYMPHOCYTE # 0.9 TH/MM3 (1.0-4.8); MEAN CELL VOLUME 88.1 FL (80.0-100.0); MEAN CORPUSCULAR HEMOGLOBIN 29.3 PG (27.0-34.0); MEAN CORPUSCULAR HGB CONC 33.3 % (32.0-36.0); MONO % 7.7 % (0.0-8.0); NEUT % 79.5 % (16.0-70.0); PLATELET COUNT 180 TH/MM3 (150-450); RED BLOOD COUNT 5.18 MIL/MM3 (4.50-5.90); RED CELL DISTRIBUTION WIDTH 15.4 % (11.6-17.2); WHITE BLOOD COUNT 7.1 TH/MM3 (4.0-11.0)
[2016-12-19 02:40] LABS: APTT (PATIENT) 29.2 SEC (24.3-30.1); INTERNATIONAL NORMALIZED RATIO 1.1 RATIO; PROTHROMBIN TIME - PATIENT 12.5 SEC (9.8-11.6)
[2016-12-19 03:05] LABS: ALT (GPT) 41 U/L (12-78); ANION GAP 9 MEQ/L (5-15); AST (GOT) 69 U/L (15-37); BICARBONATE 27.7 MEQ/L (21.0-32.0); BLOOD UREA NITROGEN 18 MG/DL (7-18); CHLORIDE 104 MEQ/L (98-107); GLOMERULAR FILTRATION RATE 99 ML/MIN (>89); POTASSIUM 3.7 MEQ/L (3.5-5.1); SODIUM (NA) 141 MEQ/L (136-145)
[2016-12-19 03:09] LABS: ALKALINE PHOSPHATASE 58 U/L (45-117); TOTAL BILIRUBIN ADULT 0.6 MG/DL (0.2-1.0)
[2016-12-19] MEDS: RESP: ALBUTEROL 2.5 MG/IPRATROPIUM 0.5 MG NEB (SCH) INH ×6 (04:00→23:27)
[2016-12-19] MEDS: INSULIN NovoLIN REGULAR SUPPLEMENTAL SCALE SQ SCH ×4 (04:19→23:44)
[2016-12-19] MEDS: methylPREDNISolone SOD SUCC 40 MG/1 ML VIAL IV PUSH SCH ×3 (04:19→19:57)
--- NOTE | 2016-12-19 04:55 | RADRPT ---
EXAM DATE/TIME: 12/19/2016 02:58 [facility] COMPARISON: CHEST SINGLE AP, December 18, 2016, 13:55. CT PULMONARY ANGIOGRAM, December 18, 2016, 17:46. INDICATIONS : Shortness of breath, possible pulmonary disease. MEDICAL HISTORY : Aneurysm, abdominal. Chronic obstructive pulmonary disease. Diabetes mellitus type II. SURGICAL HISTORY : None. ENCOUNTER: Subsequent ACUITY: 2 days PAIN SCORE: Non-responsive. LOCATION: Bilateral chest FINDINGS: Mild right greater than left basilar consolidation again noted, not significantly changed. Small righ t pleural effusion suspected to be developing. No pneumothorax seen. Heart size stable, upper limits of normal. Endotracheal tube tip is about 3 cm above the lorenza. Nasogastric tube courses into the stomach. CONCLUSION: Probably a small right pleural effusion developing. Mild bibasilar consolidation not significantly ch anged. Ollie Blank MD on December 19, 2016 at 4:52 Board Certified Radiologist. This report was verified electronically.
[2016-12-19] MEDS: RESP: BUDESONIDE 0.5 MG/2 ML NEB NEB SCH ×2 (08:43→19:57)
[2016-12-19] MEDS: ARTIFICIAL TEARS OPTH SOLN 15 ML BTL EACH EYE SCH ×3 (09:00→17:56)
[2016-12-19] MEDS: HEPARIN SODIUM - SQ 10,000 UNITS/ML VIAL SQ SCH ×3 (09:10→22:30)
[2016-12-19] MEDS: PANTOPRAZOLE SODIUM 40 MG VIAL IV SCH (09:11)
[2016-12-19] MEDS: DOCUSATE SODIUM 100 MG CAP PO SCH ×2 (09:12→19:58)
[2016-12-19] MEDS: CLOPIDOGREL 75 MG TAB PO SCH (09:12)
[2016-12-19] MEDS: SODIUM CHLORIDE 0.9% FLUSH 5 ML FLUSH IV FLUSH SCH ×2 (09:12→19:58)
[2016-12-19] MEDS: ESCITALOPRAM OXALATE 10 MG TAB PO SCH (09:12)
[2016-12-19] MEDS: CEFEPIME INJ 2,000 MG in SODIUM CHLORIDE 0.9% INJ 100 ML IV SCH ×3 (09:12→23:44)
--- NOTE | 2016-12-19 11:49 | HHI.CCPN ---
Subjective Remarks/Hospital Course 66-year-old male. Date of admission 12/18/2016. Past medical history includes hypertension, dyslipidemia, COPD oxygen dependent at night, depression , diabetes mellitus peripheral vascular disease with history of a CABG and AAA repair and left leg bypass?. He presented to [facility] ED with history of head injury from a fall. Patient says that she was going to sit down in a chair when he lost control and fell forward and hit his head on another chair in front of him. His oxygen saturation was 86% on room air and with 2 L of nasal cannula continues to be 88%. He is answering questions appropriately. However his eyes are closed and opens when I talk to him. Patient is on Plavix. Upon asking he said he had a fever last night but did not take temperature. Patient is a 5 cm aspiration sedation the ED he received his tetanus shot. Coronary records, patient became more short of breath. Stat CT head revealed no acute intracranial findings. Patient placed on BiPAP and given 0.5 mg Ativan IV, 40 mg Lasix IV, 125 mg IV Solu-Medrol followed by 3 DuoNeb therapies. Chest x-ray revealed no acute cardio pulmonary findings. Patient was intubated using 20 mg etomidate 100 mg succinylcholine. Follow chest x-ray revealed ET tube 8 cm above the lorenza. We are asked to admit. Patient is currently sedated on the ventilator and on 30 mg/kg/m of propofol drip. Subjective 12/19 The patient on sedation with propofol, responsive to commands GCS 11 T. History obtained from family, patient recently hospitalized (SeptemberOctober 2016) ICU [place], [place]. Patient has significant history for shortness of breath , and multiple falls. Apparently the patient is O2 dependent at home, noncompliant. The patient also has had a history of experiencing 4 SD's per his 's record, beginning at age 42. P/F Ratio 112, continues on FiO2 of 70%. Objective Vital Signs Date Time Temp Pulse Resp B/P Pulse Ox O2 Delivery O2 Flow Rate FiO2 12/19/16 11:15 98.5 71 18 117/61 94 12/19/16 08:43 70 12/18/16 18:50 Auto-Vent 12/18/16 12:55 15 Intake and Output 12/18/16 12/18/16 12/19/16 08:00 16:00 00:00 Intake Total 475 ml Output Total 550 ml Balance -75 ml Result Diagram: 12/19/168 12/19/16 0218 Other Results Microbiology Date/Time Procedure Status Source Growth 12/18/16 15:10 Influenza Types A,B Antigen (EMILY) - Final Complete Nasal Aspirate NEGATIVE FOR FLU A AND B ANTIGEN.... 12/18/16 15:35 Legionella Antigen - Final Complete Urine Catheterized Urine PRESUMPTIVE NEGATIVE FOR LEGIONELLA P... 12/18/16 15:35 Streptococcus pneumoniae Antigen (M - Final Complete Urine Catheterized Urine PRESUMPTIVE NEGATIVE FOR STREPTOCOCCU... Laboratory Tests Test 12/18/16 12/18/16 12:10 14:29 Blood Gas Puncture Site RT RADIAL RT RADIAL Blood Gas Patient Temperature 98.6 98.6 Blood Gas HCO3 29 mmol/L 28 mmol/L (22-26) (22-26) Blood Gas Base Excess 3.1 mmol/L 2.0 mmol/L (-2-2) (-2-2) Blood Gas Oxygen Saturation 85 % (90-100) 94 % (90-100) Arterial Blood pH 7.28 7.30 (7.380-7.420) (7.380-7.420) Arterial Blood Partial 64 mmHg (38-42) 58 mmHg (38-42) Pressure CO2 Arterial Blood Partial 64 mmHG 201 mmHG Pressure O2 (61-120) (61-120) Arterial Blood Oxygen Content 20.2 Vol % 21.6 Vol % (12.0-20.0) (12.0-20.0) Arterial Blood 4.2 % (0-4) 3.3 % (0-4) Carboxyhemoglobin Arterial Blood Methemoglobin 2.0 % (0-2) 1.9 % (0-2) Blood Gas Hemoglobin 16.9 G/DL 16.1 G/DL (12.0-16.0) (12.0-16.0) Oxygen Delivery Device NASAL CANNULA VENTILATOR Blood Gas Liter Flow 4 L/M Blood Gas Ventilator Setting 550/16/PEEP5 Blood Gas Inspired Oxygen 100 % Imaging Last Impressions Chest X-Ray 12/19/16 0000 Signed Impressions: Service Date/Time: Monday, December 19, 2016 02:58 - CONCLUSION: Probably a small right pleural effusion developing. Mild bibasilar consolidation not significantly changed. Ollie Blank MD Lower Extremity Ultrasound 12/18/16 Signed Impressions: Service Date/Time: Sunday, December 18, 2016 15:58 - CONCLUSION: 1. Negative for deep venous thrombosis. 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 Tuan Rothman MD Head CT 12/18/16 Signed Impressions: Service Date/Time: Sunday, December 18, 2016 12:29 - CONCLUSION: No acute intracranial disease. Teodoro Lawson MD CT Angiography 12/18/16 Signed Impressions: Service Date/Time: Sunday, December 18, 2016 17:46 - CONCLUSION: 1. Negative for pulmonary embolus. 2. Basilar and dependent atelectasis in both lungs. 3. Endotracheal tube and nasogastric tube in satisfactory position. Tuan Rothman MD Brain MRI 12/18/16 Signed Impressions: Service Date/Time: Sunday, December 18, 2016 18:09 - CONCLUSION: 1. Mild signal abnormalities in the periventricular white matter and in the brainstem characteristic of chronic ischemic changes. No mass, hemorrhage or shift. No recent infarction. Tuan Rothman MD Abdomen Ultrasound 12/18/16 Signed Impressions: Service Date/Time: Sunday, December 18, 2016 15:38 - CONCLUSION: 1. Enlarged fatty liver. 2. No free fluid. Multiple renal cysts. No gallstones. Tuan Rothman MD Last Impressions Head CT 12/18/16 Signed Impressions: Service Date/Time: Sunday, December 18, 2016 12:29 - CONCLUSION: No acute intracranial disease. Teodoro Lawson MD Chest X-Ray 12/18/16 Signed Impressions: Service Date/Time: Sunday, December 18, 2016 13:55 - CONCLUSION: Endotracheal tube 8 centimeters above the lorenza. Bibasilar atelectasis. Teodoro Lawson MD Objective Remarks GENERAL: 66-year-old male, critically ill currently orotracheally intubated, responsive SKIN: Warm and dry. 5cm laceration above left eye nylon sutured (12/19) HEAD: Normocephalic. EYES: Pupils equal and round 3 mm bilaterally and reactive. No scleral icterus. No injection or drainage. ENT: No nasal bleeding or discharge. Mucous membranes pink and moist. NECK: Trachea midline. No JVD. CARDIOVASCULAR: Regular rate and rhythm. S1, S2. No S4. 2/6 systolic murmur throughout the precordium RESPIRATORY: Positive end expiratory wheeze. Coarse crackles appreciated bilaterally. Breath sounds equal bilaterally. GASTROINTESTINAL: Abdomen soft, protuberant non-tender, nondistended. Old well- healed midline scar from xiphoid process to suprapubic region noted. MUSCULOSKELETAL: Extremities with 1+ nonpitting edema. Ecchymosis to the medial aspect of the left ankle noted NEUROLOGICAL: Sedated on the ventilator. Positive gag. Positive corneal reflex. Moving all 4 extremities. Urinary Catheter: Yes Arias insert reason: ICU Pt Getting Diuretics Vascular Central Line Catheter: No A/P Assessment and Plan Neuro/Psych: Depression Currently on propofol 50 mcg/kg/min as needed for sedation/analgesia while intubated Goal of RASS -2 Daily sedation vacation Continue Lexapro 10 mill grams by mouth daily/home medication CT head without contrast 12/18 revealed no acute cranial findings. MRI 12/19 brain 12/19 Nylon suture repair left forehead lacerations CV: Coronary artery disease Hypertension Dyslipidemia History of AAA repair Peripheral vascular disease Bundle-branch block/left EKG revealed normal sinus rhythm. Left axis deviation. Left bundle branch block. Troponin within normal limits. Will cycle troponins check 2-D echoF/U results Currently on normal saline at 42 cc an hour. Not requiring antihypertensive or vasopressors at the present time Continue Plavix at 75mg/ day home medication Need to obtain home records regarding patient's cardiac/vascular diagnoses- medical release obtained from for [place] ICU Resp: Acute hypoxemic hypercapnic respiratory failure History COPD ACV 18/600/5/.70 Ventilator bundle DuoNeb therapy every 4 hours and as needed Add Pulmicort twice a day Solu-Medrol 40 every 8/pulmonary dose 12/19 CTA chest-negative CXR 12/19 -mild right greater than left consolidation, small right pleural effusion GI: Start Glucerna 1.5 goal 50 cc an hour Protonix for GI prophylaxis Colace/as needed Senokot for bowel regimen : [place] for accurate I's and O's in a critically ill patient Endo: Diabetes mellitus Sliding scale insulin to maintain euglycemia. Accu-Cheks every 6 hours/medium regimen Hold Januvia 100 mg daily Glucotrol XL 5 mg a.m./2.5 mg p.m. Renal: Creatinine currently within normal limits Currently on normal saline at 42 cc an hour. Monitor urine output closely. Electrolyte replacement per ICU protocol Accurate I's and O's Continue Lasix 40 mg/daily (home med) Heme: CBC within normal limits ID: Initiate cefepime/Zithromax day 2 history of fever Blood cultures 2, sputum, UA, pending follow-up results 12/19 Legionella and pneumococcal antigens, influenza -negative FEN: Replace electrolytes as clinically indicated per ICU I protocol Msk: PT evaluate and treat Access - Utilize peripheral IV. Central line if indicated Prophylaxis - GI - Protonix - DVT - SCD/heparin Dispo: This patient remains critically ill with one or more organ systems which are or may become a threat to life. I have spent in excess of 35 minutes discontinuously in the care and management of this patient. This time is exclusive of procedures, and includes, but is not limited to, evaluation of the patient, review of the medical record, discussions with family, consultants, nursing staff, or respiratory therapy, and documentation in the medical record. Discussed with family and CHIEF LENDING OFFICER at bedside. Physician Mandy Segovia MD Dec 19, 2016 11:49
[2016-12-19] MEDS ORDERED: FUROSEMIDE 40 MG/4 ML VIAL IV PUSH STA (12:30)
[2016-12-19 12:31] LABS: BLOOD GAS BASE EXCESS 1.8 mmol/L (-2-2); BLOOD GAS CARBOXYHEMOGLOBIN 1.2 % (0-4); BLOOD GAS HCO3 26 mmol/L (22-26); BLOOD GAS O2 HGB SATURATION 94 % (90-100); BLOOD GAS OXYGEN CONTENT 20.6 Vol % (12.0-20.0); BLOOD GAS PCO2 42 mmHg (38-42); BLOOD GAS PO2 79 mmHg (61-120); BLOOD GAS TOTAL HGB 15.6 G/DL (12.0-16.0); CRITICAL VALUE NO; DRAW SITE LT RADIAL; FIO2 70 %; NUMBER OF ARTERIAL PUNCTURES 1; OXYGEN DEVICE VENTILATOR; STAT YES; TEMP CORR TO 98.6; VENT SETTINGS A/C600/18/PEEP5
--- NOTE | 2016-12-19 12:54 | EKG ---
Date Performed: 12/18/2016 Time Performed: 13:02:22 PTAGE: 66 years EKG: Sinus rhythm MARKED LEFT AXIS DEVIATION LEFT BUNDLE BRANCH BLOCK ABNORMAL ECG NO PREVIOUS TRACING DOCTOR: Scooter Bhagat Interpretating Date/Time 12/19/2016 12:50:00
[2016-12-19] MEDS ORDERED: ARTIFICIAL TEARS OPTH SOLN 15 ML BTL EACH EYE PRN (13:15)
--- NOTE | 2016-12-19 16:29 | EC ---
Study Study Date:12/19/2016 STUDY CONCLUSIONS SUMMARY - Procedure narrative: Transthoracic echocardiography. Image quality was poor. The study was technically limited due to body habitus. Scanning was performed from the parasternal, apical, and subcostal acoustic windows. - Left ventricle: The cavity size was normal. Wall thickness was normal. Systolic function was mildly reduced. The estimated ejection fraction was in the range of 45% to 50%. - Aortic valve: Valve area: 2.28cm^2 (Vmax). - Right ventricle: The cavity size was dilated. Wall thickness was normal. If LV function is below 40, please consider prescribing an ACEI or ARB or document rationale for non-use. PROCEDURE DATA STUDY STATUS: Elective. Procedure: Transthoracic echocardiography. Image quality was poor. The study was technically limited due to body habitus. Scanning was performed from the parasternal, apical, and subcostal acoustic windows. Study completion: The patient tolerated the procedure well. Transthoracic echocardiography. M-mode, complete 2D, complete spectral Doppler, and color Doppler. Height: Height: 72in. Weight: Weight: 263.5lb. Body mass index: BMI: 35.8kg/m^2. Body surface area: BSA: 2.4m^2. Patient status: Inpatient. CARDIAC ANATOMY LEFT VENTRICLE: The cavity size was normal. Wall thickness was normal. Systolic function was mildly reduced. The estimated ejection fraction was in the range of 45% to 50%. Images were inadequate for LV wall motion assessment. AORTIC VALVE: Trileaflet; normal thickness leaflets. Doppler: Transvalvular velocity was within the normal range. There was no stenosis. No regurgitation. Valve area: 2.28cm^2 (Vmax). Indexed valve area: 0.95cm^2/m^2 (Vmax). AORTA: Aortic root: The aortic root was normal in size. MITRAL VALVE: Structurally normal valve. Doppler: Transvalvular velocity was within the normal range. There was no evidence for stenosis. No regurgitation. Peak gradient: 4mm Hg (D). LEFT ATRIUM: The atrium was normal in size. RIGHT VENTRICLE: The cavity size was dilated. Wall thickness was normal. PULMONIC VALVE: Doppler: Transvalvular velocity was within the normal range. There was no evidence for stenosis. No regurgitation. TRICUSPID VALVE: Structurally normal valve. Doppler: Transvalvular velocity was within the normal range. No regurgitation. PULMONARY ARTERY: The main pulmonary artery was normal-sized. Systolic pressure was within the normal range. RIGHT ATRIUM: The atrium was normal in size. PERICARDIUM: There was no pericardial effusion. SYSTEMIC VEINS: Inferior vena cava: The vessel was dilated. Patient weight: 263.5lb _Ejection fraction:_ 65-75% _Fractional shortening:_ 32% up to 5Kg 5-11.5Kg 11.6-22.9Kg 23-45Kg 45-57Kg Aortic Root 7-13 <17 13-22 17-27 17-27 LA diam 6-13 <23 24-38 33-47 37-40 RVID 10-17 7-15 7-15 7-18 8-17 LVIDd 12-22 <32 24-38 33-47 37-40 LVPW 2-4 3-6 5-7 6-8 7-8 IVS 2-4 3-6 5-7 6-8 7-8 BASIC MEASUREMENTS ADULT NORMAL Left ventricle LV internal dimension, ED, chordal 50.2 mm 43-52 level, PLAX LV internal dimension, ES, chordal *40.2 mm 23-38 level, PLAX Fractional shortening, chordal level, *20 % >29 PLAX LV posterior wall thickness, ED 9.37 mm IVS/LVPW ratio, ED 0.98 <1.3 Ventricular septum Septal thickness, ED 9.16 mm Aortic valve Leaflet separation 21 mm 15-26 BASIC MEASUREMENTS ADULT NORMAL Aortic valve Leaflet separation 21 mm 15-26 Aorta Root diameter, ED 27 mm 20-37 Left atrium Anterior-posterior dimension, ES 35 mm 19-40 Anterior-posterior dimension index, ES 1.46 cm/m^2 <2.2 LA/aortic root ratio 1.3 DOPPLER MEASUREMENTS ADULT NORMAL Aortic valve Peak velocity, S 130 cm/s Valve area, Vmax 2.28 cm^2 Valve area index, Vmax 0.95 cm^2/m^2 Mitral valve Peak E-wave velocity 99.2 cm/s Peak A-wave velocity 81.9 cm/s Deceleration time 215 ms 150-230 Peak gradient, D 4 mm Hg Peak E/A ratio 1.2 LEGEND: Mean values are shown as u=mean value. Asterisk (*) llanes values outside specified normal range. Prepared and signed by Scooter Bhagat [id number]
[2016-12-19] MEDS: AZITHROMYCIN INJ 500 MG in SODIUM CHLOR 0.9% 250 ML INJ 250 ML IV SCH (16:42)
[2016-12-19] MEDS: SODIUM CHLOR 0.9% 1000 ML INJ 1,000 ML IV SCH (19:59)
--- NOTE | 2016-12-19 20:53 | RADRPT ---
EXAM DATE/TIME: 12/19/2016 17:57 [facility] COMPARISON: No previous studies available for comparison. INDICATIONS : Bilateral arm swelling. MEDICAL HISTORY : Myocardial infarction. Aneurysm, abdominal. Chronic obstructive pulmonary disease. Anticoagulant ther apy. SURGICAL HISTORY : Coronary artery stent.Abdominal aortic aneurysm repair. Cardiac catheterization. Left leg artery surg christian. ENCOUNTER: Initial ACUITY: 1 day PAIN SCORE: Non-responsive LOCATION: Bilateral arm. FINDINGS: RIGHT UPPER EXTREMITY: There is spontaneous flow documented in the brachial, cephalic, axillary, and subclavian veins. The vessels are compressible and augmentation response is documented. No filling defects are seen. The flow is phasic with respiration. Direction of flow in the jugular vein is caudal. LEFT UPPER EXTREMITY: There is spontaneous flow documented in the brachial, basilic, cephalic, axillary, and subclavian vei ns. The vessels are compressible and augmentation response is documented. No filling defects are se en. The flow is phasic with respiration. Direction of flow in the jugular vein is caudal. CONCLUSION: 1. No thrombus identified. Right basilic vein not clearly visualized. Tuan Rothman MD on December 19, 2016 at 20:50 Board Certified Radiologist. This report was verified electronically.
[2016-12-20] VITALS (16 sets, daily range): BP systolic 111–152; BP diastolic 56–81; PULSE 58–73; RESP 17–26; TEMP 98.2–98.6; O2SAT 87–96
[2016-12-20] MEDS: PROPOFOL 1000 MG/100 ML INJ 100 ML IV SCH ×2 (00:38→05:58)
[2016-12-20] MEDS: CHLORHEXIDINE GLUCONATE 2 % 1 PACK (2 CLOTHS) TOP SCH (04:00)
[2016-12-20] MEDS: RESP: ALBUTEROL 2.5 MG/IPRATROPIUM 0.5 MG NEB (SCH) INH ×6 (04:15→23:09)
[2016-12-20 04:41] LABS: AUTOMATED NEUTROPHIL # 7.7 TH/MM3 (1.8-7.7); BASOPHIL % 0.2 % (0.0-2.0); HEMATOCRIT 44.4 % (39.0-51.0); HEMO FLAGS DIFF FINAL; LYMPH % 11.9 % (9.0-44.0); LYMPHOCYTE # 1.1 TH/MM3 (1.0-4.8); MEAN CELL VOLUME 88.3 FL (80.0-100.0); MEAN CORPUSCULAR HEMOGLOBIN 29.6 PG (27.0-34.0); MEAN CORPUSCULAR HGB CONC 33.5 % (32.0-36.0); MONO % 5.6 % (0.0-8.0); NEUT % 82.3 % (16.0-70.0); PLATELET COUNT 184 TH/MM3 (150-450); RED BLOOD COUNT 5.03 MIL/MM3 (4.50-5.90); RED CELL DISTRIBUTION WIDTH 15.7 % (11.6-17.2); WHITE BLOOD COUNT 9.3 TH/MM3 (4.0-11.0)
[2016-12-20 05:12] LABS: BICARBONATE 25.8 MEQ/L (21.0-32.0); MAGNESIUM 2.5 MG/DL (1.5-2.5); POTASSIUM 3.9 MEQ/L (3.5-5.1)
[2016-12-20 05:15] LABS: INDIRECT BILIRUBIN 0.3 MG/DL (0.0-0.8); TOTAL BILIRUBIN ADULT 0.5 MG/DL (0.2-1.0)
--- NOTE | 2016-12-20 05:15 | RADRPT ---
EXAM DATE/TIME: 12/20/2016 03:53 [facility] COMPARISON: CHEST SINGLE AP, December 19, 2016, 2:58. INDICATIONS : Shortness of breath, possible pulmonary disease. MEDICAL HISTORY : Aneurysm, abdominal. Chronic obstructive pulmonary disease. Diabetes mellitus type II. SURGICAL HISTORY : None. ENCOUNTER: Subsequent ACUITY: 3 days PAIN SCORE: Non-responsive. LOCATION: Bilateral chest FINDINGS: The cardiac silhouette is enlarged in transverse diameter. Support lines and tubes are in satisfactor y position. The lungs are hypoinflated. There is left lower lobe atelectasis versus pneumonia. A smal l left sided effusion is present. CONCLUSION: 1. Cardiomegaly 2. Left lower lobe atelectasis versus pneumonia. Small left effusion. This is new when compared with the prior exam. Calos White MD on December 20, 2016 at 5:13 Board Certified Radiologist. This report was verified electronically.
[2016-12-20 05:44] LABS: BLOOD GAS BASE EXCESS 1.8 mmol/L (-2-2); BLOOD GAS CARBOXYHEMOGLOBIN 1.3 % (0-4); BLOOD GAS HCO3 26 mmol/L (22-26); BLOOD GAS O2 HGB SATURATION 93 % (90-100); BLOOD GAS OXYGEN CONTENT 20.4 Vol % (12.0-20.0); BLOOD GAS PCO2 40 mmHg (38-42); BLOOD GAS PO2 79 mmHg (61-120); BLOOD GAS TOTAL HGB 15.5 G/DL (12.0-16.0); TEMP CORR TO 98.6
[2016-12-20 05:45] LABS: CRITICAL VALUE NO; FIO2 55 %; OXYGEN DEVICE VENTILATOR; VENT SETTINGS AC18/650/PEEP5
[2016-12-20 05:46] LABS: DRAW SITE RT RADIAL; NUMBER OF ARTERIAL PUNCTURES 1; STAT NO; ULNAR PULSE PRESENT
[2016-12-20] MEDS: INSULIN NovoLIN REGULAR SUPPLEMENTAL SCALE SQ SCH ×3 (05:58→17:03)
[2016-12-20] MEDS: methylPREDNISolone SOD SUCC 40 MG/1 ML VIAL IV PUSH SCH ×3 (05:58→20:40)
[2016-12-20] MEDS: RESP: BUDESONIDE 0.5 MG/2 ML NEB NEB SCH ×2 (08:01→20:31)
[2016-12-20] MEDS: DOCUSATE SODIUM 100 MG CAP PO SCH ×2 (08:19→20:39)
[2016-12-20] MEDS: PANTOPRAZOLE SODIUM 40 MG VIAL IV SCH (08:19)
[2016-12-20] MEDS: HEPARIN SODIUM - SQ 10,000 UNITS/ML VIAL SQ SCH ×2 (08:19→17:05)
[2016-12-20] MEDS: CLOPIDOGREL 75 MG TAB PO SCH (08:20)
[2016-12-20] MEDS: ARTIFICIAL TEARS OPTH SOLN 15 ML BTL EACH EYE SCH (08:20)
[2016-12-20] MEDS: SODIUM CHLORIDE 0.9% FLUSH 5 ML FLUSH IV FLUSH SCH ×2 (08:20→20:40)
[2016-12-20] MEDS: FUROSEMIDE 40 MG/4 ML VIAL IV PUSH SCH (08:20)
[2016-12-20] MEDS: CEFEPIME INJ 2,000 MG in SODIUM CHLORIDE 0.9% INJ 100 ML IV SCH ×2 (08:20→17:05)
[2016-12-20] MEDS: ESCITALOPRAM OXALATE 10 MG TAB PO SCH (08:20)
--- NOTE | 2016-12-20 10:12 | HHI.CCPN ---
Subjective Remarks/Hospital Course 66-year-old male. Date of admission 12/18/2016. Past medical history includes hypertension, dyslipidemia, COPD oxygen dependent at night, depression , diabetes mellitus peripheral vascular disease with history of a CABG and AAA repair and left leg bypass?. He presented to [facility] ED with history of head injury from a fall. Patient says that she was going to sit down in a chair when he lost control and fell forward and hit his head on another chair in front of him. His oxygen saturation was 86% on room air and with 2 L of nasal cannula continues to be 88%. He is answering questions appropriately. However his eyes are closed and opens when I talk to him. Patient is on Plavix. Upon asking he said he had a fever last night but did not take temperature. Patient is a 5 cm aspiration sedation the ED he received his tetanus shot. Coronary records, patient became more short of breath. Stat CT head revealed no acute intracranial findings. Patient placed on BiPAP and given 0.5 mg Ativan IV, 40 mg Lasix IV, 125 mg IV Solu-Medrol followed by 3 DuoNeb therapies. Chest x-ray revealed no acute cardio pulmonary findings. Patient was intubated using 20 mg etomidate 100 mg succinylcholine. Follow chest x-ray revealed ET tube 8 cm above the lorenza. We are asked to admit. Patient is currently sedated on the ventilator and on 30 mg/kg/m of propofol drip. Subjective 12/19 The patient on sedation with propofol, responsive to commands GCS 11 T. History obtained from family, patient recently hospitalized (SeptemberOctober 2016) ICU [place], [place]. Patient has significant history for shortness of breath , and multiple falls. Apparently the patient is O2 dependent at home, noncompliant. The patient also has had a history of experiencing 4 RI's per his 's record, beginning at age 42. P/F Ratio 112, continues on FiO2 of 70%. 12/20 Tmax 99.3The patient is off sedation. Following commands this a.m.. CPAP trials initiated, plan for extubation this a.m.. O2 sat remains 9394%. Objective Vital Signs Date Time Temp Pulse Resp B/P Pulse Ox O2 Delivery O2 Flow Rate FiO2 12/20/16 09:40 89 Nasal Cannula 6 12/20/16 08:02 50 12/20/16 08:00 63 12/20/16 06:03 98.4 18 111/61 Intake and Output 12/19/16 12/19/16 12/20/16 08:00 16:00 00:00 Intake Total 575 ml 563 ml Output Total 650 ml 650 ml Balance -75 ml -87 ml Result Diagram: 12/20/16 0420 12/20/16 0420 Other Results Microbiology Date/Time Procedure Status Source Growth 12/18/16 15:00 Urine Culture - Final Complete Urine Catheterized Urine NO GROWTH IN 48 HOURS. 12/18/16 15:10 Influenza Types A,B Antigen (EMILY) - Final Complete Nasal Aspirate NEGATIVE FOR FLU A AND B ANTIGEN.... 12/18/16 15:35 Legionella Antigen - Final Complete Urine Catheterized Urine PRESUMPTIVE NEGATIVE FOR LEGIONELLA P... 12/18/16 15:35 Streptococcus pneumoniae Antigen (M - Final Complete Urine Catheterized Urine PRESUMPTIVE NEGATIVE FOR STREPTOCOCCU... Laboratory Tests Test 12/19/16 12/20/16 12:20 05:32 Blood Gas Puncture Site LT RADIAL RT RADIAL Blood Gas Patient Temperature 98.6 98.6 Blood Gas HCO3 26 mmol/L 26 mmol/L (22-26) (22-26) Blood Gas Base Excess 1.8 mmol/L 1.8 mmol/L (-2-2) (-2-2) Blood Gas Oxygen Saturation 94 % (90-100) 93 % (90-100) Arterial Blood pH 7.41 7.43 (7.380-7.420) (7.380-7.420) Arterial Blood Partial 42 mmHg (38-42) 40 mmHg (38-42) Pressure CO2 Arterial Blood Partial 79 mmHg 79 mmHg Pressure O2 (61-120) (61-120) Arterial Blood Oxygen Content 20.6 Vol % 20.4 Vol % (12.0-20.0) (12.0-20.0) Arterial Blood 1.2 % (0-4) 1.3 % (0-4) Carboxyhemoglobin Arterial Blood Methemoglobin 1.0 % (0-2) 1.0 % (0-2) Blood Gas Hemoglobin 15.6 G/DL 15.5 G/DL (12.0-16.0) (12.0-16.0) Oxygen Delivery Device VENTILATOR VENTILATOR Blood Gas Ventilator Setting A/C600/18/PEEP5 AC18/650/PEEP5 Blood Gas Inspired Oxygen 70 % 55 % Imaging Last Impressions Chest X-Ray 12/20/16 0600 Signed Impressions: Service Date/Time: Tuesday, December 20, 2016 03:53 - CONCLUSION: 1. Cardiomegaly 2. Left lower lobe atelectasis versus pneumonia. Small left effusion. This is new when compared with the prior exam. Calos White MD Upper Extremity Ultrasound 12/19/16 0000 Signed Impressions: Service Date/Time: Monday, December 19, 2016 17:57 - CONCLUSION: 1. No thrombus identified. Right basilic vein not clearly visualized. Tuan Rothman MD Lower Extremity Ultrasound 12/18/16 0000 Signed Impressions: Service Date/Time: Sunday, December 18, 2016 15:58 - CONCLUSION: 1. Negative for deep venous thrombosis. Probable complex Arbaham's cyst on the right. Tuan Rothman MD Head CT 12/18/16 0000 Signed Impressions: Service Date/Time: Sunday, December 18, 2016 12:29 - CONCLUSION: No acute intracranial disease. Teodoro Lawson MD CT Angiography 12/18/16 0000 Signed Impressions: Service Date/Time: Sunday, December 18, 2016 17:46 - CONCLUSION: 1. Negative for pulmonary embolus. 2. Basilar and dependent atelectasis in both lungs. 3. Endotracheal tube and nasogastric tube in satisfactory position. Tuan Rothman MD Brain MRI 12/18/16 0000 Signed Impressions: Service Date/Time: Sunday, December 18, 2016 18:09 - CONCLUSION: 1. Mild signal abnormalities in the periventricular white matter and in the brainstem characteristic of chronic ischemic changes. No mass, hemorrhage or shift. No recent infarction. Tuan Rothman MD Abdomen Ultrasound 12/18/16 0000 Signed Impressions: Service Date/Time: Sunday, December 18, 2016 15:38 - CONCLUSION: 1. Enlarged fatty liver. 2. No free fluid. Multiple renal cysts. No gallstones. Tuan Rothman MD Last Impressions Chest X-Ray 12/19/16 0000 Signed Impressions: Service Date/Time: Monday, December 19, 2016 02:58 - CONCLUSION: Probably a small right pleural effusion developing. Mild bibasilar consolidation not significantly changed. Ollie Blank MD Lower Extremity Ultrasound 12/18/16 Signed Impressions: Service Date/Time: Sunday, December 18, 2016 15:58 - CONCLUSION: 1. Negative for deep venous thrombosis. 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 Tuan Rothman MD Head CT 12/18/16 Signed Impressions: Service Date/Time: Sunday, December 18, 2016 12:29 - CONCLUSION: No acute intracranial disease. Teodoro Lawson MD CT Angiography 12/18/16 Signed Impressions: Service Date/Time: Sunday, December 18, 2016 17:46 - CONCLUSION: 1. Negative for pulmonary embolus. 2. Basilar and dependent atelectasis in both lungs. 3. Endotracheal tube and nasogastric tube in satisfactory position. Tuan Rothman MD Brain MRI 12/18/16 Signed Impressions: Service Date/Time: Sunday, December 18, 2016 18:09 - CONCLUSION: 1. Mild signal abnormalities in the periventricular white matter and in the brainstem characteristic of chronic ischemic changes. No mass, hemorrhage or shift. No recent infarction. Tuan Rothman MD Abdomen Ultrasound 12/18/16 Signed Impressions: Service Date/Time: Sunday, December 18, 2016 15:38 - CONCLUSION: 1. Enlarged fatty liver. 2. No free fluid. Multiple renal cysts. No gallstones. Tuan Rothman MD Last Impressions Head CT 12/18/16 Signed Impressions: Service Date/Time: Sunday, December 18, 2016 12:29 - CONCLUSION: No acute intracranial disease. Teodoro Lawson MD Chest X-Ray 12/18/16 Signed Impressions: Service Date/Time: Sunday, December 18, 2016 13:55 - CONCLUSION: Endotracheal tube 8 centimeters above the lorenza. Bibasilar atelectasis. Teodoro Lawson MD Objective Remarks GENERAL: 66-year-old male, alert and responsive, intubated SKIN: Warm and dry. 5cm laceration above left eye nylon sutured (12/19) HEAD: Normocephalic. EYES: Pupils equal and round 3 mm bilaterally and reactive. No scleral icterus. No injection or drainage. ENT: No nasal bleeding or discharge. Mucous membranes pink and moist. NECK: Trachea midline. No JVD. CARDIOVASCULAR: Regular rate and rhythm. S1, S2. No S4. 2/6 systolic murmur throughout the precordium RESPIRATORY: Positive end expiratory wheeze. Coarse crackles appreciated bilaterally. Breath sounds equal bilaterally. GASTROINTESTINAL: Abdomen soft, protuberant non-tender, nondistended. Old well- healed midline scar from xiphoid process to suprapubic region noted. MUSCULOSKELETAL: Extremities with 1+ nonpitting edema. Ecchymosis to the medial aspect of the left ankle noted NEUROLOGICAL: GCS 11 T Moving all 4 extremities. Responding to yes and no questions. A/P Assessment and Plan Neuro/Psych: Depression Sedation vacation, plans for SBT trial this a.m. Goal of RASS -1 Continue Lexapro 10 mill grams by mouth daily/home medication CT head without contrast 12/18 revealed no acute cranial findings. MRI 12/19 brain-chronic ischemic changes, no mass hemorrhage or shift. No recent infarction 12/19 Nylon suture repair left forehead lacerations GCS 11 T CV: Coronary artery disease Hypertension Dyslipidemia History of AAA repair Peripheral vascular disease Bundle-branch block/left EKG revealed normal sinus rhythm. Left axis deviation. Left bundle branch block Tropnins WNL 2-D echo 12/19-EF 45-50%, RV dilated Normal saline @42cc/hr Continue Plavix at 75mg/ day home medication Awaiting records regarding patient's cardiac/vascular diagnoses-[place] ICU Resp: Acute hypoxemic hypercapnic respiratory failure History COPD ACV 18/600/5/.70 Ventilator bundle DuoNeb therapy every 4 hours and as needed Add Pulmicort twice a day Solu-Medrol 40 every 8/pulmonary dose 12/19 CTA chest-negative CXR 12/20-left lower lobe atelectasis, small left effusion Plan for extubationaggressive pulmonary toilet-incentive spirometry, Acapella, EZPAP GI: Voice rest followed by ice chips, advance to clear liquid diet Protonix for GI prophylaxis Colace/as needed Senokot for bowel regimen : [place] for accurate I's and O's in a critically ill patient Endo: Diabetes mellitus Sliding scale insulin to maintain euglycemia. Accu-Cheks every 6 hours/medium regimen Hold Januvia 100 mg daily Glucotrol XL 5 mg a.m./2.5 mg p.m. Renal: Creatinine currently within normal limits Currently on normal saline at 42 cc an hour. Monitor urine output closely. Electrolyte replacement per ICU protocol Accurate I's and O's Continue Lasix 40 mg/daily (home med) Heme: CBC within normal limits ID: Cefepime/Zithromax day 3 of 7 history of fever lood cultures 2, sputum, UA NGTD 12/19 Legionella and pneumococcal antigens, influenza -negative FEN: Replace electrolytes as clinically indicated per ICU protocol MSK: PT evaluate and treat Access - Utilize peripheral IV's Prophylaxis - GI - Protonix - DVT - SCD/heparin Dispo: This patient remains critically ill with one or more organ systems which are or may become a threat to life. I have spent in excess of 30 minutes discontinuously in the care and management of this patient. This time is exclusive of procedures, and includes, but is not limited to, evaluation of the patient, review of the medical record, discussions with family, consultants, nursing staff, or respiratory therapy, and documentation in the medical record. Discussed with family and MARKETING BUDGET ANALYST at bedside. Physician Mandy Segovia MD Dec 20, 2016 10:12
[2016-12-20] MEDS ORDERED: FUROSEMIDE 40 MG/4 ML VIAL IV PUSH ONE (11:00)
[2016-12-20] MEDS: NICOTINE 21 MG/24 HR PATCH TOP SCH (11:49)
[2016-12-20] MEDS: ACETAMINOPHEN 325 MG TAB PO PRN (17:04)
[2016-12-20] MEDS: FAMOTIDINE 20 MG TAB PO SCH (20:39)
[2016-12-20] MEDS: SODIUM CHLOR 0.9% 1000 ML INJ 1,000 ML IV SCH (20:40)
[2016-12-20] MEDS: REMOVE OLD NICODERM (NICOTINE) PATCH TD SCH (20:41)
[2016-12-20] MEDS ORDERED: FAMOTIDINE 20 MG TAB PO SCH (21:00)
[2016-12-21] VITALS (15 sets, daily range): BP systolic 107–153; BP diastolic 55–70; PULSE 60–100; RESP 17–33; TEMP 98.3–98.8; O2SAT 85–97
[2016-12-21] MEDS: HEPARIN SODIUM - SQ 10,000 UNITS/ML VIAL SQ SCH ×3 (01:12→18:26)
[2016-12-21] MEDS: CEFEPIME INJ 2,000 MG in SODIUM CHLORIDE 0.9% INJ 100 ML IV SCH ×3 (01:12→18:22)
[2016-12-21] MEDS: INSULIN NovoLIN REGULAR SUPPLEMENTAL SCALE SQ SCH ×4 (01:13→18:22)
[2016-12-21] MEDS: RESP: ALBUTEROL 2.5 MG/IPRATROPIUM 0.5 MG NEB (SCH) INH ×6 (03:53→23:11)
[2016-12-21] MEDS: CHLORHEXIDINE GLUCONATE 2 % 1 PACK (2 CLOTHS) TOP SCH (04:00)
[2016-12-21] MEDS: methylPREDNISolone SOD SUCC 40 MG/1 ML VIAL IV PUSH SCH ×3 (05:10→21:27)
[2016-12-21] MEDS: RESP: BUDESONIDE 0.5 MG/2 ML NEB NEB SCH ×2 (07:48→19:37)
[2016-12-21] MEDS: NICOTINE 21 MG/24 HR PATCH TOP SCH (08:06)
[2016-12-21] MEDS: ACETAMINOPHEN 325 MG TAB PO PRN ×2 (08:06→18:22)
[2016-12-21] MEDS: DOCUSATE SODIUM 100 MG CAP PO SCH ×2 (08:07→21:27)
[2016-12-21] MEDS: FAMOTIDINE 20 MG TAB PO SCH ×2 (08:07→21:27)
[2016-12-21] MEDS: FUROSEMIDE 40 MG/4 ML VIAL IV PUSH SCH (08:07)
[2016-12-21] MEDS: CLOPIDOGREL 75 MG TAB PO SCH (08:08)
[2016-12-21] MEDS: ESCITALOPRAM OXALATE 10 MG TAB PO SCH (08:08)
[2016-12-21] MEDS: SODIUM CHLORIDE 0.9% FLUSH 5 ML FLUSH IV FLUSH SCH ×2 (08:08→21:28)
[2016-12-21 08:38] LABS: HEMATOCRIT 46.9 % (39.0-51.0); MEAN CELL VOLUME 89.6 FL (80.0-100.0); MEAN CORPUSCULAR HEMOGLOBIN 29.6 PG (27.0-34.0); PLATELET COUNT 185 TH/MM3 (150-450); RED BLOOD COUNT 5.24 MIL/MM3 (4.50-5.90); RED CELL DISTRIBUTION WIDTH 15.7 % (11.6-17.2); REVIEW FLAG FINAL; WHITE BLOOD COUNT 9.5 TH/MM3 (4.0-11.0)
[2016-12-21 09:01] LABS: BICARBONATE 30.4 MEQ/L (21.0-32.0); MAGNESIUM 2.7 MG/DL (1.5-2.5)
[2016-12-21] MEDS: AZITHROMYCIN INJ 500 MG in SODIUM CHLOR 0.9% 250 ML INJ 250 ML IV SCH (18:25)
--- NOTE | 2016-12-21 19:47 | HHI.CCPN ---
Subjective Remarks/Hospital Course 66-year-old male. Date of admission 12/18/2016. Past medical history includes hypertension, dyslipidemia, COPD oxygen dependent at night, depression , diabetes mellitus peripheral vascular disease with history of a CABG and AAA repair and left leg bypass?. He presented to [facility] ED with history of head injury from a fall. Patient says that she was going to sit down in a chair when he lost control and fell forward and hit his head on another chair in front of him. His oxygen saturation was 86% on room air and with 2 L of nasal cannula continues to be 88%. He is answering questions appropriately. However his eyes are closed and opens when I talk to him. Patient is on Plavix. Upon asking he said he had a fever last night but did not take temperature. Patient is a 5 cm aspiration sedation the ED he received his tetanus shot. Coronary records, patient became more short of breath. Stat CT head revealed no acute intracranial findings. Patient placed on BiPAP and given 0.5 mg Ativan IV, 40 mg Lasix IV, 125 mg IV Solu-Medrol followed by 3 DuoNeb therapies. Chest x-ray revealed no acute cardio pulmonary findings. Patient was intubated using 20 mg etomidate 100 mg succinylcholine. Follow chest x-ray revealed ET tube 8 cm above the lorenza. We are asked to admit. Patient is currently sedated on the ventilator and on 30 mg/kg/m of propofol drip. Subjective 12/19 The patient on sedation with propofol, responsive to commands GCS 11 T. History obtained from family, patient recently hospitalized (SeptemberOctober 2016) ICU [place], [place]. Patient has significant history for shortness of breath , and multiple falls. Apparently the patient is O2 dependent at home, noncompliant. The patient also has had a history of experiencing 4 TN's per his 's record, beginning at age 42. P/F Ratio 112, continues on FiO2 of 70%. 12/20 Tmax 99.3The patient is off sedation. Following commands this a.m.. CPAP trials initiated, plan for extubation this a.m.. O2 sat remains 9394%. 12/21 The patient was extubated yesterday afternoon. The patient has tolerated diet the patient has been weaned onto nasal cannula 4 L. The patient normally has home O2 at 2 L, noncompliant. The patient also reported that he has MARCIA. The patient activity advance to out of bed to chair, no noted dyspnea, O2 sat 89 -92%. Objective Vital Signs Date Time Temp Pulse Resp B/P Pulse Ox O2 Delivery O2 Flow Rate FiO2 12/21/16 18:30 92 Nasal Cannula 4.00 12/21/16 18:00 69 12/21/16 16:00 98.3 17 143/59 12/21/16 07:51 50 Intake and Output 12/20/16 12/20/16 12/21/16 08:00 16:00 00:00 Intake Total 1224 ml 724 ml Output Total 350 ml 3200 ml Balance 874 ml -2476 ml Result Diagram: 12/21/16 0725 12/21/16 0729 Imaging Last Impressions Chest X-Ray 12/20/16 0600 Signed Impressions: Service Date/Time: Tuesday, December 20, 2016 03:53 - CONCLUSION: 1. Cardiomegaly 2. Left lower lobe atelectasis versus pneumonia. Small left effusion. This is new when compared with the prior exam. Calos White MD Upper Extremity Ultrasound 12/19/16 0000 Signed Impressions: Service Date/Time: Monday, December 19, 2016 17:57 - CONCLUSION: 1. No thrombus identified. Right basilic vein not clearly visualized. Tuan Rothman MD Lower Extremity Ultrasound 12/18/16 0000 Signed Impressions: Service Date/Time: Sunday, December 18, 2016 15:58 - CONCLUSION: 1. Negative for deep venous thrombosis. 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 Tuan Rothman MD Head CT 12/18/16 0000 Signed Impressions: Service Date/Time: Sunday, December 18, 2016 12:29 - CONCLUSION: No acute intracranial disease. Teodoro Lawson MD CT Angiography 12/18/16 0000 Signed Impressions: Service Date/Time: Sunday, December 18, 2016 17:46 - CONCLUSION: 1. Negative for pulmonary embolus. 2. Basilar and dependent atelectasis in both lungs. 3. Endotracheal tube and nasogastric tube in satisfactory position. Tuan Rothman MD Brain MRI 12/18/16 0000 Signed Impressions: Service Date/Time: Sunday, December 18, 2016 18:09 - CONCLUSION: 1. Mild signal abnormalities in the periventricular white matter and in the brainstem characteristic of chronic ischemic changes. No mass, hemorrhage or shift. No recent infarction. Tuan Rothman MD Abdomen Ultrasound 12/18/16 Signed Impressions: Service Date/Time: Sunday, December 18, 2016 15:38 - CONCLUSION: 1. Enlarged fatty liver. 2. No free fluid. Multiple renal cysts. No gallstones. Tuan Rothman MD Last Impressions Chest X-Ray 12/19/16 Signed Impressions: Service Date/Time: Monday, December 19, 2016 02:58 - CONCLUSION: Probably a small right pleural effusion developing. Mild bibasilar consolidation not significantly changed. Ollie Blank MD Lower Extremity Ultrasound 12/18/16 Signed Impressions: Service Date/Time: Sunday, December 18, 2016 15:58 - CONCLUSION: 1. Negative for deep venous thrombosis. 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 Tuan Rothman MD Head CT 12/18/16 Signed Impressions: Service Date/Time: Sunday, December 18, 2016 12:29 - CONCLUSION: No acute intracranial disease. Teodoro Lawson MD CT Angiography 12/18/16 Signed Impressions: Service Date/Time: Sunday, December 18, 2016 17:46 - CONCLUSION: 1. Negative for pulmonary embolus. 2. Basilar and dependent atelectasis in both lungs. 3. Endotracheal tube and nasogastric tube in satisfactory position. Tuan Rothman MD Brain MRI 12/18/16 Signed Impressions: Service Date/Time: Sunday, December 18, 2016 18:09 - CONCLUSION: 1. Mild signal abnormalities in the periventricular white matter and in the brainstem characteristic of chronic ischemic changes. No mass, hemorrhage or shift. No recent infarction. Tuan Rothman MD Abdomen Ultrasound 12/18/16 Signed Impressions: Service Date/Time: Sunday, December 18, 2016 15:38 - CONCLUSION: 1. Enlarged fatty liver. 2. No free fluid. Multiple renal cysts. No gallstones. Tuan Rothman MD Last Impressions Head CT 12/18/16 Signed Impressions: Service Date/Time: Sunday, December 18, 2016 12:29 - CONCLUSION: No acute intracranial disease. Teodoro Lawson MD Chest X-Ray 12/18/16 Signed Impressions: Service Date/Time: Sunday, December 18, 2016 13:55 - CONCLUSION: Endotracheal tube 8 centimeters above the lorenza. Bibasilar atelectasis. Teodoro Lawson MD Objective Remarks GENERAL: 66-year-old male, sitting in chair in no acute distress SKIN: Warm and dry. 5cm laceration above left eye nylon sutured (12/19) HEAD: Normocephalic. EYES: Pupils equal and round 3 mm bilaterally and reactive. No scleral icterus. No injection or drainage. ENT: No nasal bleeding or discharge. Mucous membranes pink and moist. NECK: Trachea midline. No JVD. CARDIOVASCULAR: Regular rate and rhythm. S1, S2. No S4. 2/6 systolic murmur throughout the precordium RESPIRATORY: MIld expiratory wheeze. Breath sounds equal bilaterally. GASTROINTESTINAL: Abdomen soft, protuberant non-tender, nondistended. Old well- healed midline scar from xiphoid process to suprapubic region noted. MUSCULOSKELETAL: Extremities with peripheral edema NEUROLOGICAL: GCS 15, Alert and oriented. Moving all 4 extremities. A/P Assessment and Plan Neuro/Psych: Depression GCS 15 Continue Lexapro 10 mill grams by mouth daily/home medication CT head without contrast 12/18 revealed no acute cranial findings. MRI 12/19 brain-chronic ischemic changes, no mass hemorrhage or shift. No recent infarction 12/19 Nylon suture repair left forehead lacerations CV: Coronary artery disease Hypertension Dyslipidemia History of AAA repair Peripheral vascular disease Bundle-branch block/left EKG revealed normal sinus rhythm. Left axis deviation. Left bundle branch block Troponins WNL 2-D echo 12/19-EF 45-50%, RV dilated Continue Plavix at 75mg/ day home medication Resp: Acute hypoxemic hypercapnic respiratory failure History COPD MARCIA ACV 18/600/5/.70 Ventilator bundle DuoNeb therapy every 4 hours and as needed Pulmicort twice a day Solu-Medrol 40 every 8/pulmonary dose 12/19 CTA chest-negative CXR 12/20-left lower lobe atelectasis, small left effusion Continue aggressive pulmonary toilet-incentive spirometry, Acapella, EZPAP Pulmonary consulted GI: Heart healthy diet Protonix for GI prophylaxis Colace/as needed Senokot for bowel regimen : D/C for[place] for accurate I's and O's in a critically ill patient Endo: Diabetes mellitus Sliding scale insulin to maintain euglycemia. Accu-Cheks every 6 hours/medium regimen Hold Januvia 100 mg daily Glucotrol XL 5 mg a.m./2.5 mg p.m. Renal: Creatinine currently within normal limits Monitor urine output closely. Electrolyte replacement per ICU protocol Accurate I's and O's Continue Lasix 40 mg/daily (home med) Heme: CBC within normal limits ID: Cefepime/Zithromax day 4 of 7 history of fever lood cultures 2, sputum, UA NGTD 12/19 Legionella and pneumococcal antigens, influenza -negative FEN: Replace electrolytes as clinically indicated per ICU protocol MSK: PT evaluate and treat OOB Access - Utilize peripheral IV's Prophylaxis - GI - Protonix - DVT - SCD/heparin Dispo: Level 2 Plan transfer to Hospitalist in am Physician Mandy Segovia MD Dec 21, 2016 19:47
[2016-12-21] MEDS: REMOVE OLD NICODERM (NICOTINE) PATCH TD SCH (21:00)
[2016-12-21] MEDS: SODIUM CHLOR 0.9% 1000 ML INJ 1,000 ML IV SCH (21:28)
[2016-12-22] VITALS (14 sets, daily range): BP systolic 106–160; BP diastolic 59–82; PULSE 62–106; RESP 15–24; TEMP 97.7–98.6; O2SAT 88–98
[2016-12-22] MEDS: CEFEPIME INJ 2,000 MG in SODIUM CHLORIDE 0.9% INJ 100 ML IV SCH ×4 (01:00→22:51)
[2016-12-22] MEDS: RESP: ALBUTEROL 2.5 MG/IPRATROPIUM 0.5 MG NEB (SCH) INH ×5 (03:13→20:05)
[2016-12-22] MEDS: CHLORHEXIDINE GLUCONATE 2 % 1 PACK (2 CLOTHS) TOP SCH ×2 (04:00→20:12)
[2016-12-22] MEDS: INSULIN NovoLIN REGULAR SUPPLEMENTAL SCALE SQ SCH ×5 (05:24→22:50)
[2016-12-22] MEDS: methylPREDNISolone SOD SUCC 40 MG/1 ML VIAL IV PUSH SCH ×2 (05:24→19:43)
[2016-12-22] MEDS: RESP: BUDESONIDE 0.5 MG/2 ML NEB NEB SCH ×2 (08:00→20:05)
[2016-12-22] MEDS: HEPARIN SODIUM - SQ 10,000 UNITS/ML VIAL SQ SCH ×4 (09:11→22:50)
[2016-12-22] MEDS: SODIUM CHLORIDE 0.9% FLUSH 5 ML FLUSH IV FLUSH SCH ×2 (09:11→19:53)
[2016-12-22] MEDS: FUROSEMIDE 40 MG/4 ML VIAL IV PUSH SCH ×2 (09:11→19:43)
[2016-12-22] MEDS: NICOTINE 21 MG/24 HR PATCH TOP SCH (09:11)
[2016-12-22] MEDS: ESCITALOPRAM OXALATE 10 MG TAB PO SCH (09:12)
[2016-12-22] MEDS: CLOPIDOGREL 75 MG TAB PO SCH (09:12)
[2016-12-22] MEDS: FAMOTIDINE 20 MG TAB PO SCH ×2 (09:12→19:43)
[2016-12-22] MEDS: DOCUSATE SODIUM 100 MG CAP PO SCH ×2 (09:12→19:43)
--- NOTE | 2016-12-22 11:05 | HHI.PR ---
Subjective Remarks The patient was shaving himself off of oxygen. His is at the bedside. He said he has been ambulating. He wants to go home soon. He says sometimes he sleeps standing up because his breathing is so bad and that is why he he fell down. He is concerned he hit his ribs on the left side because they're still sore. Discussed with nursing. Objective Vitals Vital Signs Date Time Temp Pulse Resp B/P Pulse Ox O2 Delivery O2 Flow Rate FiO2 12/22/16 10:00 67 12/22/16 08:00 98.4 69 22 149/70 88 12/22/16 08:00 62 12/22/16 06:00 66 12/22/16 04:00 98.3 106 17 129/65 98 12/22/16 04:00 67 12/22/16 03:16 92 Nasal Cannula 6.00 12/22/16 02:00 64 12/22/16 00:00 70 12/22/16 00:00 98.4 99 15 106/59 98 12/21/16 22:00 70 12/21/16 20:00 65 12/21/16 20:00 98.5 100 19 107/57 97 12/21/16 19:38 92 Nasal Cannula 4.00 12/21/16 18:30 92 Nasal Cannula 4.00 12/21/16 18:00 69 12/21/16 16:00 70 12/21/16 16:00 98.3 65 17 143/59 94 12/21/16 14:00 68 12/21/16 12:00 98.8 64 18 134/55 92 12/21/16 12:00 74 I/O 12/21/16 12/21/16 12/21/16 12/22/16 12/22/16 12/22/16 07:00 15:00 23:00 07:00 15:00 23:00 Intake Total 995 ml 431 ml 200 ml 452 ml Output Total 1150 ml 2500 ml 300 ml 250 ml 900 ml Balance -155 ml -2069 ml -100 ml 202 ml -900 ml Intake Oral 200 ml IV Total 795 ml 431 ml 200 ml 452 ml Output Urine Total 1150 ml 2500 ml 300 ml 250 ml 900 ml Result Diagram: 12/21/16 0725 12/21/16 0729 Imaging Last Impressions Chest X-Ray 12/20/16 0600 Signed Impressions: Service Date/Time: Tuesday, December 20, 2016 03:53 - CONCLUSION: 1. Cardiomegaly 2. Left lower lobe atelectasis versus pneumonia. Small left effusion. This is new when compared with the prior exam. Calos White MD Upper Extremity Ultrasound 12/19/16 0000 Signed Impressions: Service Date/Time: Monday, December 19, 2016 17:57 - CONCLUSION: 1. No thrombus identified. Right basilic vein not clearly visualized. Tuan Rothman MD Lower Extremity Ultrasound 12/18/16 0000 Signed Impressions: Service Date/Time: Sunday, December 18, 2016 15:58 - CONCLUSION: 1. Negative for deep venous thrombosis. 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 Tuan Rothman MD Head CT 12/18/16 0000 Signed Impressions: Service Date/Time: Sunday, December 18, 2016 12:29 - CONCLUSION: No acute intracranial disease. Teodoro Lawson MD CT Angiography 12/18/16 0000 Signed Impressions: Service Date/Time: Sunday, December 18, 2016 17:46 - CONCLUSION: 1. Negative for pulmonary embolus. 2. Basilar and dependent atelectasis in both lungs. 3. Endotracheal tube and nasogastric tube in satisfactory position. Tuan Rothman MD Brain MRI 12/18/16 0000 Signed Impressions: Service Date/Time: Sunday, December 18, 2016 18:09 - CONCLUSION: 1. Mild signal abnormalities in the periventricular white matter and in the brainstem characteristic of chronic ischemic changes. No mass, hemorrhage or shift. No recent infarction. Tuan Rothman MD Abdomen Ultrasound 12/18/16 0000 Signed Impressions: Service Date/Time: Sunday, December 18, 2016 15:38 - CONCLUSION: 1. Enlarged fatty liver. 2. No free fluid. Multiple renal cysts. No gallstones. Tuan Rothman MD Objective Remarks GENERAL: No acute distress, resting comfortably. SKIN: Warm and dry. 5cm laceration above left eye nylon sutured (12/19) HEAD: Normocephalic. EYES: Pupils equal and round 3 mm bilaterally and reactive. No scleral icterus. No injection or drainage. ENT: No nasal bleeding or discharge. Mucous membranes pink and moist. NECK: Trachea midline. No JVD. CARDIOVASCULAR: Regular rate and rhythm. S1, S2. No S4. 2/6 systolic murmur throughout the precordium RESPIRATORY: Crackles at the bases. Breath sounds equal bilaterally. GASTROINTESTINAL: Abdomen soft, protuberant non-tender, nondistended. Old well- healed midline scar from xiphoid process to suprapubic region noted. MUSCULOSKELETAL: Extremities with TR peripheral edema. NEUROLOGICAL: Alert and oriented. Moving all 4 extremities. PSYCH: Mood and affect appropriate. Procedures Intubation/ extubation Medications and IVs Current Medications Medications (Trade) Dose Ordered Sig/Alberto Route Start Time Stop Time Status Last Admin (NS 1000 ml Inj) 1,000 ml @ 30 mls/hr Q24H IV 12/18/16 14:48 12/21/16 21:28 (NS Flush) 2 ml UNSCH PRN IV FLUSH 12/18/16 15:00 (NS Flush) 2 ml BID IV FLUSH 12/18/16 21:00 12/22/16 09:11 (Tylenol) 650 mg Q6H PRN PO 12/18/16 15:00 12/21/16 18:22 (Zofran Inj) 4 mg Q6H PRN IV 12/18/16 15:00 (Colace) 100 mg BID PO 12/18/16 21:00 12/22/16 09:12 (Senokot) 17.2 mg Q12H PRN PO 12/18/16 15:00 (Heparin Inj) 5,000 units Q8H SQ 12/18/16 16:00 12/22/16 09:11 Miscellaneous Information 1 Q361D XX 12/18/16 15:00 (Chlorhexidine 2% Cloth) 3 pack Taper DAILY@04 TOP 12/19/16 04:00 12/15/17 03:59 12/22/16 04:00 Chlorhexidine Gluconate 3 pack 3 pack UNSCH PRN TOP 12/18/16 15:00 Potassium Chloride 100 ml @ 50 mls/hr Q2H PRN IV 12/18/16 15:00 (KCl 20 Meq Premix Inj) 100 ml @ 50 mls/hr Q2H PRN IV 12/18/16 15:00 Potassium Chloride 40 meq 40 meq UNSCH PRN PO/TUBE 12/18/16 15:00 Potassium Chloride 100 ml @ 25 mls/hr UNSCH PRN IV 12/18/16 15:00 Potassium Chloride 100 ml @ 50 mls/hr Q2H PRN IV 12/18/16 15:00 (Magnesium Sulfate Inj/NS Inj) 100 ml @ 50 mls/hr UNSCH PRN IV 12/18/16 15:00 Magnesium Oxide 800 mg 800 mg UNSCH PRN PO 12/18/16 15:00 (Magnesium Sulfate Inj/NS Inj) 100 ml @ 50 mls/hr UNSCH PRN IV 12/18/16 15:00 Potassium Phosphate 2000 mg 2,000 mg Q4H PRN PO 12/18/16 15:00 (Sodium Phosphate Inj/NS 250 ml Inj) 250 ml @ 42 mls/hr UNSCH PRN IV 12/18/16 15:00 (KCl 40 Meq/30 ml Liq) 40 meq UNSCH PRN PO/TUBE 12/18/16 15:00 Potassium Phosphate 2000 mg 2,000 mg UNSCH PRN PO/TUBE 12/18/16 15:00 Potassium Phosphate 30 mmol/ Sodium Chloride 260 ml @ 42 mls/hr UNSCH PRN IV 12/18/16 15:00 Cefepime HCl 2000 mg/Sodium Chloride 100 ml @ 200 mls/hr Q8H IV 12/18/16 17:00 12/22/16 09:11 (Zithromax Inj/ NS 250 ml Inj) 250 ml @ 250 mls/hr Q24H IV 12/18/16 16:00 12/21/16 18:25 (D50w (Vial) Inj) 25 ml UNSCH PRN IV PUSH 12/18/16 15:00 (Glucagon Inj) 1 mg UNSCH PRN OTHER 12/18/16 15:00 (NovoLIN R SUPPLEMENTAL SCALE) 1 Q6HR SQ 12/18/16 18:00 12/22/16 12:00 (Plavix) 75 mg DAILY PO 12/19/16 09:00 12/22/16 09:12 (Lexapro) 10 mg DAILY PO 12/19/16 09:00 12/22/16 09:12 (SoluMEDROL INJ) 40 mg Q8HR IV PUSH 12/18/16 22:00 12/22/16 05:24 (Lasix Inj) 40 mg DAILY IV PUSH 12/20/16 09:00 12/22/16 09:11 (Pepcid) 20 mg BID PO 12/20/16 21:00 12/22/16 09:12 (Habitrol 21 Mg Patch.24 Hr) 1 patch DAILY TOP 12/20/16 12:00 12/22/16 09:11 Miscellaneous Information 1 HS TD 12/20/16 21:00 12/21/16 21:00 A/P Problem List: (1) Respiratory acidosis ICD Code: E87.2 Status: Acute (2) Respiratory failure ICD Code: J96.90 Status: Acute (3) Head injury ICD Code: S09.90XA Status: Acute (4) Fall ICD Code: W19.XXXA Status: Acute (5) Laceration of forehead, left, complicated ICD Code: S01.81XA Status: Acute (6) Coronary artery disease ICD Code: I25.10 Status: Acute (7) Depression ICD Code: F32.9 Status: Acute (8) COPD (chronic obstructive pulmonary disease) ICD Code: J44.9 Status: Acute (9) Dyslipidemia ICD Code: E78.5 Status: Acute (10) Peripheral vascular disease ICD Code: I73.9 Status: Acute (11) Diabetes ICD Code: E11.9 Status: Acute (12) History of coronary artery bypass graft ICD Code: Z95.1 Status: Acute (13) History of AAA (abdominal aortic aneurysm) repair ICD Code: Z98.890 Status: Acute Assessment and Plan Acute hypoxemic hypercapnic respiratory failure The pt has a history of COPD and MARCIA, on 2L NC at home. He was intubated and extubated successfully. CTA chest negative. CXR 12/20-left lower lobe atelectasis , small left effusion. Echo with EF 45-50%. He has peripheral edema. - pulmonology consult pending. - DuoNeb therapy every 4 hours and as needed. - Pulmicort twice a day. - Solu-Medrol 40 every 8 hours. - Continue aggressive pulmonary toilet-incentive spirometry, Acapella, EZPAP. - increase Lasix to 40 mg PO BID. Trauma The pt had sutures for facial laceration. CT head without contrast 12/18 revealed no acute cranial findings. MRI 12/19 brain: chronic ischemic changes, no mass hemorrhage or shift; No recent infarction. - physical therapy. - pain control as needed with a bowel regimen. CAD/ PVD/ AAA repair EKG revealed normal sinus rhythm; Left axis deviation; Left bundle branch block. Troponins WNL. 2-D echo 12/19-EF 45-50%, RV dilated. - Continue cardiac regimen. - continue Lasix. Increase to 40 mg BID. Diabetes mellitus On Januvia and Glucotrol as an outpt. - Sliding scale insulin, Accu-Cheks. - Hold Januvia 100 mg daily and Glucotrol XL 5 mg a.m./2.5 mg p.m. Fever The pt was started on Cefepime/Zithromax empirically. Cultures negative. - Day 5 of 7 of antibiotics. PPx: SCDs/ heparin Discharge Planning Transfer to floor. Problem Qualifiers (1) Respiratory failure: Qualified Code: J96.01 - Acute respiratory failure with hypoxia and hypercapnia (2) Head injury: Qualified Code: S09.90XA - Head injury, initial encounter (3) Fall: Qualified Code: W19.XXXA - Fall, initial encounter (4) Laceration of forehead, left, complicated: Qualified Code: S01.81XA - Laceration of forehead, left, complicated, initial encounter (5) Coronary artery disease: (6) Depression: Qualified Code: F33.9 - Recurrent major depressive disorder, remission status unspecified (7) COPD (chronic obstructive pulmonary disease): Qualified Code: J44.9 - Chronic obstructive pulmonary disease, unspecified COPD type (8) Diabetes: Qualified Code: E11.8 - Type 2 diabetes mellitus with complication, without long-term current use of insulin Pato Atkins DO Dec 22, 2016 11:05
[2016-12-22] MEDS: AZITHROMYCIN INJ 500 MG in SODIUM CHLOR 0.9% 250 ML INJ 250 ML IV SCH (16:03)
[2016-12-22] MEDS: REMOVE OLD NICODERM (NICOTINE) PATCH TD SCH (19:43)
[2016-12-22] MEDS ORDERED: diphenhydrAMINE HCL 25 MG CAP PO ONE (21:30)
--- NOTE | 2016-12-22 21:38 | MB ---
cc: MARY HERNANDEZ M.D. DATE OF CONSULTATION: 12/22/2016 REASON FOR CONSULTATION: Hypoxic and hypercarbic respiratory failure. HISTORY OF PRESENT ILLNESS: Mr. Sheehan is a 66 year-old male who was admitted after a syncopal episode and injuring his head. The patient has known history of COPD in the past and history of aortic aneurysm which the patient states after this repair, his shortness of breath had began which led to evaluation with a diagnosis of COPD. The patient's arterial blood gas after initial intubation, mechanical ventilation is noted to be with hypoxia as well as hypercarbia. He is presently on oxygen on six liters by nasal cannula. He denies history of fever, chills, hemoptysis, TB or previous industrial exposure. PAST MEDICAL HISTORY: 1. COPD. 2. Hypertension 3. Hyperlipidemia 4. Diabetes mellitus 5. History of mood disorder. ALLERGIES: None known to medication. MEDICATIONS AT HOME: 1. Glucotrol 2. Plavix 3. Januvia 4. Lexapro 5. Cozaar SOCIAL HISTORY: Remote smoking history, none at present. Drinks alcohol socially. No TB, no industrial exposure. REVIEW OF SYSTEMS: 12 point review of systems as per HPI and past history. Of note, the patient has a history of snoring while sleeping. Tiredness in the daytime, however, this is mild. PHYSICAL EXAMINATION: The patient is alert, temperature is 98.6 degrees Fahrenheit. Pulse is 70, respiratory rate 18, blood pressure 140/70. Oxygen saturation 96% on two liter oxygen by nasal cannula. HEENT: Unremarkable. Eyes without icterus. Neck: Without adenopathy. Thyroid enlargement. Central trachea. Chest: No dullness to percussion, clear to auscultation. Cardiac exam: PMI distant. S1-S2 audible. No murmur, no rub. Abdomen: Lax, bowel sounds audible. Extremities: No clubbing, cyanosis or edema. IMPRESSION 1. Hypoxic, hypercarbic respiratory failure. 2. Syncope, evaluation in progress. 3. Mood disorder, namely depression. 4. Coronary artery disease. 5. Status post abdominal aortic aneurysm repair. PLAN: 1. The patient will be maintained on oxygen therapy as needed. 2. Bronchodilator therapy. 3. Will obtain pulmonary function, arterial blood gas. Because of the patient's hypoxia, hypercarbia is not clear, I do not know the severity of the COPD, however, this will be evaluated. Underlying sleep disorder, breathing, obstructive sleep apnea need be evaluated as well. Will attempt to do as much as possible while the patient is here in [facility], however, he is leaving in a few days going back to [facility] where he could be further evaluated. I do thank you for asking me to partake in Mr. Sheehan's care. Mary Hernandez MD WWW/REJI /7:33 PM /9:12 PM
[2016-12-22] MEDS: ACETAMINOPHEN 325 MG TAB PO PRN (22:50)
[2016-12-23] VITALS (12 sets, daily range): BP systolic 130–160; BP diastolic 74–88; PULSE 63–87; RESP 18–24; TEMP 97.9–98.8; O2SAT 90–97
[2016-12-23] MEDS: RESP: ALBUTEROL 2.5 MG/IPRATROPIUM 0.5 MG NEB (SCH) INH ×6 (04:20→20:58)
[2016-12-23] MEDS: INSULIN NovoLIN REGULAR SUPPLEMENTAL SCALE SQ SCH ×4 (05:17→22:29)
[2016-12-23 06:42] LABS: BICARBONATE 36.5 MEQ/L (21.0-32.0); POTASSIUM 3.9 MEQ/L (3.5-5.1)
--- NOTE | 2016-12-23 07:53 | HHI.PR ---
Subjective Remarks alert no SOB at rest Objective GENERAL: SKIN: Warm and dry. HEAD: Atraumatic. Normocephalic. EYES: Pupils equal and round. No scleral icterus. No injection or drainage. ENT: No nasal bleeding or discharge. Mucous membranes pink and moist. NECK: Trachea midline. No JVD. CARDIOVASCULAR: Regular rate and rhythm. RESPIRATORY: No accessory muscle use. Clear to auscultation. Breath sounds equal bilaterally. GASTROINTESTINAL: Abdomen soft, non-tender, nondistended. Hepatic and splenic margins not palpable. MUSCULOSKELETAL: Extremities without clubbing, cyanosis, or edema. No obvious deformities. NEUROLOGICAL: Awake and alert. No obvious cranial nerve deficits. Motor grossly within normal limits. Five out of 5 muscle strength in the arms and legs. Normal speech. PSYCHIATRIC: Appropriate mood and affect; insight and judgment normal. Vital Signs Date Time Temp Pulse Resp B/P Pulse Ox O2 Delivery O2 Flow Rate FiO2 12/23/16 06:00 63 12/23/16 04:00 96 Nasal Cannula 5.00 12/23/16 04:00 98.3 65 21 160/88 97 12/23/16 04:00 67 12/23/16 02:00 67 12/23/16 00:00 96 Nasal Cannula 5.00 12/23/16 00:00 67 12/23/16 00:00 97.9 63 21 155/74 97 12/22/16 22:00 67 12/22/16 20:03 95 Nasal Cannula 4.00 12/22/16 20:00 97.7 63 21 160/82 97 12/22/16 20:00 67 12/22/16 20:00 97 Nasal Cannula 5.00 12/22/16 18:00 67 12/22/16 16:00 66 12/22/16 16:00 96 Nasal Cannula 6.00 12/22/16 16:00 98.6 65 20 157/78 96 12/22/16 14:00 69 12/22/16 12:00 67 12/22/16 12:00 97.9 68 24 158/81 94 12/22/16 10:00 67 12/22/16 08:00 98.4 69 22 149/70 88 12/22/16 08:00 62 I/O 12/22/16 12/22/16 12/22/16 12/23/16 12/23/16 12/23/16 07:00 15:00 23:00 07:00 15:00 23:00 Intake Total 452 ml 806 ml 475 ml 475 ml Output Total 250 ml 2300 ml 650 ml 650 ml Balance 202 ml -1494 ml -175 ml -175 ml Intake Oral 480 ml 250 ml 250 ml IV Total 452 ml 326 ml 225 ml 225 ml Output Urine Total 250 ml 2300 ml 650 ml 650 ml # Bowel Movements 1 Result Diagram: 12/21/16 0725 12/23/16 0517 Assessment and Plan Assessment and Plan Respiratory failure COPD ? MARCIA PLAN O2 needed Bronchodilator therapy check ABG Mary Hernandez MD Dec 23, 2016 07:52
[2016-12-23] MEDS: CLOPIDOGREL 75 MG TAB PO SCH (08:08)
[2016-12-23] MEDS: HEPARIN SODIUM - SQ 10,000 UNITS/ML VIAL SQ SCH ×3 (08:09→22:41)
[2016-12-23] MEDS: CEFEPIME INJ 2,000 MG in SODIUM CHLORIDE 0.9% INJ 100 ML IV SCH ×2 (08:10→18:38)
[2016-12-23] MEDS: FUROSEMIDE 40 MG/4 ML VIAL IV PUSH SCH ×2 (08:10→22:12)
[2016-12-23] MEDS: methylPREDNISolone SOD SUCC 40 MG/1 ML VIAL IV PUSH SCH ×2 (08:10→22:13)
[2016-12-23] MEDS: SODIUM CHLORIDE 0.9% FLUSH 5 ML FLUSH IV FLUSH SCH ×2 (08:11→22:15)
[2016-12-23] MEDS: FAMOTIDINE 20 MG TAB PO SCH ×2 (08:11→22:13)
[2016-12-23] MEDS: ESCITALOPRAM OXALATE 10 MG TAB PO SCH (08:11)
[2016-12-23] MEDS: DOCUSATE SODIUM 100 MG CAP PO SCH ×2 (08:11→22:13)
[2016-12-23] MEDS: NICOTINE 21 MG/24 HR PATCH TOP SCH (08:11)
[2016-12-23] MEDS: RESP: BUDESONIDE 0.5 MG/2 ML NEB NEB SCH ×2 (10:26→20:00)
[2016-12-23 11:42] LABS: BLOOD GAS BASE EXCESS 9.9 mmol/L (-2-2); BLOOD GAS CARBOXYHEMOGLOBIN 1.6 % (0-4); BLOOD GAS HCO3 35 mmol/L (22-26); BLOOD GAS O2 HGB SATURATION 92 % (90-100); BLOOD GAS OXYGEN CONTENT 22.5 Vol % (12.0-20.0); BLOOD GAS PCO2 56 mmHg (38-42); BLOOD GAS PO2 71 mmHg (61-120); BLOOD GAS TOTAL HGB 17.5 G/DL (12.0-16.0); TEMP CORR TO 98.6
[2016-12-23 11:43] LABS: CRITICAL VALUE YES; DRAW SITE RT RADIAL; LITER FLOW 4 L/M; NUMBER OF ARTERIAL PUNCTURES 1; OXYGEN DEVICE NASAL CANNULA; STAT NO
--- NOTE | 2016-12-23 12:17 | HHI.PR ---
Subjective Remarks The patient really wants to go home. He says he has oxygen at home but he only uses it at night. He says he will not use oxygen all day. He was to go back to [facility] as soon as tomorrow. Family at bedside. Objective Vitals Vital Signs Date Time Temp Pulse Resp B/P Pulse Ox O2 Delivery O2 Flow Rate FiO2 12/23/16 10:27 90 Nasal Cannula 4.00 12/23/16 06:00 63 12/23/16 04:00 96 Nasal Cannula 5.00 12/23/16 04:00 98.3 65 21 160/88 97 12/23/16 04:00 67 12/23/16 02:00 67 12/23/16 00:00 96 Nasal Cannula 5.00 12/23/16 00:00 67 12/23/16 00:00 97.9 63 21 155/74 97 12/22/16 22:00 67 12/22/16 20:03 95 Nasal Cannula 4.00 12/22/16 20:00 97.7 63 21 160/82 97 12/22/16 20:00 67 12/22/16 20:00 97 Nasal Cannula 5.00 12/22/16 18:00 67 12/22/16 16:00 66 12/22/16 16:00 96 Nasal Cannula 6.00 12/22/16 16:00 98.6 65 20 157/78 96 12/22/16 14:00 69 I/O 12/22/16 12/22/16 12/22/16 12/23/16 12/23/16 12/23/16 07:00 15:00 23:00 07:00 15:00 23:00 Intake Total 452 ml 806 ml 475 ml 475 ml Output Total 250 ml 2300 ml 650 ml 650 ml Balance 202 ml -1494 ml -175 ml -175 ml Intake Oral 480 ml 250 ml 250 ml IV Total 452 ml 326 ml 225 ml 225 ml Output Urine Total 250 ml 2300 ml 650 ml 650 ml # Bowel Movements 1 Result Diagram: 12/21/16 0725 12/23/16 0517 Imaging Last Impressions Chest X-Ray 12/20/16 0600 Signed Impressions: Service Date/Time: Tuesday, December 20, 2016 03:53 - CONCLUSION: 1. Cardiomegaly 2. Left lower lobe atelectasis versus pneumonia. Small left effusion. This is new when compared with the prior exam. Calos White MD Upper Extremity Ultrasound 12/19/16 Signed Impressions: Service Date/Time: Monday, December 19, 2016 17:57 - CONCLUSION: 1. No thrombus identified. Right basilic vein not clearly visualized. Tuan Rothman MD Lower Extremity Ultrasound 12/18/16 Signed Impressions: Service Date/Time: Sunday, December 18, 2016 15:58 - CONCLUSION: 1. Negative for deep venous thrombosis. 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 Tuan Rothman MD Head CT 12/18/16 Signed Impressions: Service Date/Time: Sunday, December 18, 2016 12:29 - CONCLUSION: No acute intracranial disease. Teodoro Lawson MD CT Angiography 12/18/16 Signed Impressions: Service Date/Time: Sunday, December 18, 2016 17:46 - CONCLUSION: 1. Negative for pulmonary embolus. 2. Basilar and dependent atelectasis in both lungs. 3. Endotracheal tube and nasogastric tube in satisfactory position. Tuan Rothman MD Brain MRI 12/18/16 Signed Impressions: Service Date/Time: Sunday, December 18, 2016 18:09 - CONCLUSION: 1. Mild signal abnormalities in the periventricular white matter and in the brainstem characteristic of chronic ischemic changes. No mass, hemorrhage or shift. No recent infarction. Tuan Rothman MD Abdomen Ultrasound 12/18/16 Signed Impressions: Service Date/Time: Sunday, December 18, 2016 15:38 - CONCLUSION: 1. Enlarged fatty liver. 2. No free fluid. Multiple renal cysts. No gallstones. Tuan Rothman MD Objective Remarks GENERAL: No acute distress, resting comfortably. SKIN: Warm and dry. 5cm laceration above left eye nylon sutured (12/19) HEAD: Normocephalic. EYES: Pupils equal and round 3 mm bilaterally and reactive. No scleral icterus. No injection or drainage. ENT: No nasal bleeding or discharge. Mucous membranes pink and moist. NECK: Trachea midline. No JVD. CARDIOVASCULAR: Regular rate and rhythm. S1, S2. No S4. 2/6 systolic murmur throughout the precordium RESPIRATORY: Crackles at the bases. Breath sounds equal bilaterally. GASTROINTESTINAL: Abdomen soft, protuberant non-tender, nondistended. Old well- healed midline scar from xiphoid process to suprapubic region noted. MUSCULOSKELETAL: Extremities with TR peripheral edema. NEUROLOGICAL: Alert and oriented. Moving all 4 extremities. PSYCH: Mood and affect appropriate. Procedures Intubation/ extubation Medications and IVs Current Medications Medications (Trade) Dose Ordered Sig/Alberto Route Start Time Stop Time Status Last Admin (NS Flush) 2 ml UNSCH PRN IV FLUSH 12/18/16 15:00 (NS Flush) 2 ml BID IV FLUSH 12/18/16 21:00 12/23/16 08:11 (Tylenol) 650 mg Q6H PRN PO 12/18/16 15:00 12/22/16 22:50 (Zofran Inj) 4 mg Q6H PRN IV 12/18/16 15:00 (Colace) 100 mg BID PO 12/18/16 21:00 12/23/16 08:11 (Senokot) 17.2 mg Q12H PRN PO 12/18/16 15:00 (Heparin Inj) 5,000 units Q8H SQ 12/18/16 16:00 12/23/16 08:09 Miscellaneous Information 1 Q361D XX 12/18/16 15:00 (Chlorhexidine 2% Cloth) 3 pack Taper DAILY@04 TOP 12/19/16 04:00 12/15/17 03:59 12/22/16 20:12 Chlorhexidine Gluconate 3 pack 3 pack UNSCH PRN TOP 12/18/16 15:00 Potassium Chloride 100 ml @ 50 mls/hr Q2H PRN IV 12/18/16 15:00 (KCl 20 Meq Premix Inj) 100 ml @ 50 mls/hr Q2H PRN IV 12/18/16 15:00 Potassium Chloride 40 meq 40 meq UNSCH PRN PO/TUBE 12/18/16 15:00 Potassium Chloride 100 ml @ 25 mls/hr UNSCH PRN IV 12/18/16 15:00 Potassium Chloride 100 ml @ 50 mls/hr Q2H PRN IV 12/18/16 15:00 (Magnesium Sulfate Inj/NS Inj) 100 ml @ 50 mls/hr UNSCH PRN IV 12/18/16 15:00 Magnesium Oxide 800 mg 800 mg UNSCH PRN PO 12/18/16 15:00 (Magnesium Sulfate Inj/NS Inj) 100 ml @ 50 mls/hr UNSCH PRN IV 12/18/16 15:00 Potassium Phosphate 2000 mg 2,000 mg Q4H PRN PO 12/18/16 15:00 (Sodium Phosphate Inj/NS 250 ml Inj) 250 ml @ 42 mls/hr UNSCH PRN IV 12/18/16 15:00 (KCl 40 Meq/30 ml Liq) 40 meq UNSCH PRN PO/TUBE 12/18/16 15:00 Potassium Phosphate 2000 mg 2,000 mg UNSCH PRN PO/TUBE 12/18/16 15:00 Potassium Phosphate 30 mmol/ Sodium Chloride 260 ml @ 42 mls/hr UNSCH PRN IV 12/18/16 15:00 Cefepime HCl 2000 mg/Sodium Chloride 100 ml @ 200 mls/hr Q8H IV 12/18/16 17:00 12/23/16 08:10 (Zithromax Inj/ NS 250 ml Inj) 250 ml @ 250 mls/hr Q24H IV 12/18/16 16:00 12/22/16 16:03 (D50w (Vial) Inj) 25 ml UNSCH PRN IV PUSH 12/18/16 15:00 (Glucagon Inj) 1 mg UNSCH PRN OTHER 12/18/16 15:00 (NovoLIN R SUPPLEMENTAL SCALE) 1 Q6HR SQ 12/18/16 18:00 12/22/16 22:50 (Plavix) 75 mg DAILY PO 12/19/16 09:00 12/23/16 08:08 (Lexapro) 10 mg DAILY PO 12/19/16 09:00 12/23/16 08:11 (Pepcid) 20 mg BID PO 12/20/16 21:00 12/23/16 08:11 (Habitrol 21 Mg Patch.24 Hr) 1 patch DAILY TOP 12/20/16 12:00 12/23/16 08:11 Miscellaneous Information 1 HS TD 12/20/16 21:00 12/22/16 19:43 (Lasix Inj) 40 mg BID IV PUSH 12/22/16 21:00 12/23/16 08:10 (SoluMEDROL INJ) 40 mg BID IV PUSH 12/22/16 21:00 12/23/16 08:10 A/P Problem List: (1) Respiratory acidosis ICD Code: E87.2 Status: Acute (2) Respiratory failure ICD Code: J96.90 Status: Acute (3) Head injury ICD Code: S09.90XA Status: Acute (4) Fall ICD Code: W19.XXXA Status: Acute (5) Laceration of forehead, left, complicated ICD Code: S01.81XA Status: Acute (6) Coronary artery disease ICD Code: I25.10 Status: Acute (7) Depression ICD Code: F32.9 Status: Acute (8) COPD (chronic obstructive pulmonary disease) ICD Code: J44.9 Status: Acute (9) Dyslipidemia ICD Code: E78.5 Status: Acute (10) Peripheral vascular disease ICD Code: I73.9 Status: Acute (11) Diabetes ICD Code: E11.9 Status: Acute (12) History of coronary artery bypass graft ICD Code: Z95.1 Status: Acute (13) History of AAA (abdominal aortic aneurysm) repair ICD Code: Z98.890 Status: Acute Assessment and Plan Acute hypoxemic hypercapnic respiratory failure The pt has a history of COPD and MARCIA, on 2L NC at home. He was intubated and extubated successfully. CTA chest negative. CXR 12/20-left lower lobe atelectasis , small left effusion. Echo with EF 45-50%. He has peripheral edema. - pulmonology consult appreciated. Follow up recs. - DuoNeb therapy every 4 hours and as needed. - Pulmicort twice a day. - Solu-Medrol 40 BID. - Continue aggressive pulmonary toilet-incentive spirometry, Acapella, EZPAP. - continue Lasix 40 mg IV BID. Trauma The pt had sutures for facial laceration. CT head without contrast 12/18 revealed no acute cranial findings. MRI 12/19 brain: chronic ischemic changes, no mass hemorrhage or shift; No recent infarction. - physical therapy. - pain control as needed with a bowel regimen. CAD/ PVD/ AAA repair EKG revealed normal sinus rhythm; Left axis deviation; Left bundle branch block. Troponins WNL. 2-D echo 12/19-EF 45-50%, RV dilated. - Continue cardiac regimen. - continue Lasix. Diabetes mellitus On Januvia and Glucotrol as an outpt. - Sliding scale insulin, Accu-Cheks. Relatively well controlled 12/23. - Hold Januvia 100 mg daily and Glucotrol XL 5 mg a.m./2.5 mg p.m. Fever The pt was started on Cefepime/Zithromax empirically. Cultures negative. - Day 6 of 7 of antibiotics. PPx: SCDs/ heparin Discharge Planning Transfer to floor. Problem Qualifiers (1) Respiratory failure: Qualified Code: J96.01 - Acute respiratory failure with hypoxia and hypercapnia (2) Head injury: Qualified Code: S09.90XA - Head injury, initial encounter (3) Fall: Qualified Code: W19.XXXA - Fall, initial encounter (4) Laceration of forehead, left, complicated: Qualified Code: S01.81XA - Laceration of forehead, left, complicated, initial encounter (5) Coronary artery disease: (6) Depression: Qualified Code: F33.9 - Recurrent major depressive disorder, remission status unspecified (7) COPD (chronic obstructive pulmonary disease): Qualified Code: J44.9 - Chronic obstructive pulmonary disease, unspecified COPD type (8) Diabetes: Qualified Code: E11.8 - Type 2 diabetes mellitus with complication, without long-term current use of insulin Pato Atkins DO Dec 23, 2016 12:17
[2016-12-23] MEDS: AZITHROMYCIN INJ 500 MG in SODIUM CHLOR 0.9% 250 ML INJ 250 ML IV SCH (16:07)
[2016-12-23] MEDS: LOSARTAN 25 MG TAB PO SCH (17:42)
[2016-12-23] MEDS: REMOVE OLD NICODERM (NICOTINE) PATCH TD SCH (21:00)
[2016-12-23] MEDS ORDERED: diphenhydrAMINE HCL 25 MG CAP PO SCH (23:30)
[2016-12-24 00:14] VITALS: BP 131/68; PULSE 70; RESP 16; TEMP 97.3; O2SAT 94
[2016-12-24] MEDS: RESP: ALBUTEROL 2.5 MG/IPRATROPIUM 0.5 MG NEB (SCH) INH ×4 (00:24→11:41)
[2016-12-24] MEDS: CEFEPIME INJ 2,000 MG in SODIUM CHLORIDE 0.9% INJ 100 ML IV SCH ×2 (00:37→09:48)
[2016-12-24] MEDS: CHLORHEXIDINE GLUCONATE 2 % 1 PACK (2 CLOTHS) TOP SCH (03:10)
[2016-12-24 04:00] VITALS: BP 132/60; PULSE 82; RESP 20; TEMP 97.9; O2SAT 93
[2016-12-24] MEDS: INSULIN NovoLIN REGULAR SUPPLEMENTAL SCALE SQ SCH (05:35)
[2016-12-24 08:00] VITALS: BP 126/65; PULSE 71; RESP 20; TEMP 98.5; O2SAT 89
[2016-12-24 08:14] VITALS: O2SAT 90
--- NOTE | 2016-12-24 08:44 | HHI.PR ---
Subjective Remarks alert no SOB at rest Objective Vital Signs Date Time Temp Pulse Resp B/P Pulse Ox O2 Delivery O2 Flow Rate FiO2 12/24/16 08:14 90 Nasal Cannula 5.00 12/24/16 04:00 97.9 82 20 132/60 93 12/24/16 00:14 97.3 70 16 131/68 94 12/23/16 21:00 94 Nasal Cannula 4.00 50 12/23/16 20:59 96 Nasal Cannula 4.00 12/23/16 20:00 98.5 72 18 130/74 92 12/23/16 16:07 Nasal Cannula 4.00 12/23/16 15:00 98.8 77 20 143/77 90 12/23/16 14:00 86 12/23/16 12:00 98.3 87 20 131/82 90 12/23/16 12:00 90 Nasal Cannula 4.00 12/23/16 12:00 87 12/23/16 10:27 90 Nasal Cannula 4.00 12/23/16 10:00 65 I/O 12/23/16 12/23/16 12/23/16 12/24/16 12/24/16 12/24/16 07:00 15:00 23:00 07:00 15:00 23:00 Intake Total 475 ml 580 ml 1388 ml 317 ml Output Total 650 ml 1400 ml 1 ml Balance -175 ml -820 ml 1387 ml 317 ml Intake Oral 250 ml 480 ml 150 ml 200 ml IV Total 225 ml 100 ml 1238 ml 117 ml Output Urine Total 650 ml 1400 ml 1 ml # Voids 2 # Bowel Movements 1 0 0 Result Diagram: 12/21/16 0725 12/23/16 0517 Medications and IVs GENERAL: SKIN: Warm and dry. HEAD: Atraumatic. Normocephalic. EYES: Pupils equal and round. No scleral icterus. No injection or drainage. ENT: No nasal bleeding or discharge. Mucous membranes pink and moist. NECK: Trachea midline. No JVD. CARDIOVASCULAR: Regular rate and rhythm. RESPIRATORY: No accessory muscle use. Clear to auscultation. Breath sounds equal bilaterally. GASTROINTESTINAL: Abdomen soft, non-tender, nondistended. Hepatic and splenic margins not palpable. MUSCULOSKELETAL: Extremities without clubbing, cyanosis, or edema. No obvious deformities. NEUROLOGICAL: Awake and alert. No obvious cranial nerve deficits. Motor grossly within normal limits. Five out of 5 muscle strength in the arms and legs. Normal speech. PSYCHIATRIC: Appropriate mood and affect; insight and judgment normal. Assessment and Plan Assessment and Plan Respiratory failure COPD ? MARCIA PLAN O2 needed Bronchodilator therapy check ABG Mary,Mary Mccord MD Dec 24, 2016 08:43
[2016-12-24] MEDS ORDERED: PRED10PA2 PO (09:40)
[2016-12-24] MEDS ORDERED: BUDE.5I NEB (09:40)
[2016-12-24] MEDS ORDERED: POTA-163 PO (09:40)
[2016-12-24] MEDS ORDERED: FURO1TAB60 PO (09:40)
[2016-12-24] MEDS ORDERED: NICO21DI2 TOP (09:40)
--- NOTE | 2016-12-24 09:41 | HHI.DCPOC ---
Discharge Care Plan Diagnosis: (1) Peripheral vascular disease (2) Diabetes (3) COPD (chronic obstructive pulmonary disease) (4) Coronary artery disease (5) Respiratory failure (6) Head injury (7) Fall Goals to Promote Your Health * To prevent worsening of your condition and complications * To maintain your health at the optimal level Directions to Meet Your Goals Take your medications as prescribed Follow your dietary instruction Follow activity as directed Keep your appointments as scheduled Take your immunizations and boosters as scheduled If your symptoms worsen call your PCP, if no PCP go to Urgent Care Center or Emergency Room Smoking is Dangerous to Your Health. Avoid second hand smoke Call the 24-hour hour crisis hotline for domestic abuse at Ptao Atkins DO Dec 24, 2016 09:41
[2016-12-24] MEDS ORDERED: VENTAER INH (09:43)
[2016-12-24] MEDS: methylPREDNISolone SOD SUCC 40 MG/1 ML VIAL IV PUSH SCH (09:48)
[2016-12-24] MEDS: ESCITALOPRAM OXALATE 10 MG TAB PO SCH (09:48)
[2016-12-24] MEDS: CLOPIDOGREL 75 MG TAB PO SCH (09:48)
[2016-12-24] MEDS: FUROSEMIDE 40 MG/4 ML VIAL IV PUSH SCH (09:48)
[2016-12-24] MEDS: HEPARIN SODIUM - SQ 10,000 UNITS/ML VIAL SQ SCH (09:48)
[2016-12-24] MEDS: DOCUSATE SODIUM 100 MG CAP PO SCH (09:48)
[2016-12-24] MEDS: LOSARTAN 25 MG TAB PO SCH (09:48)
[2016-12-24] MEDS: FAMOTIDINE 20 MG TAB PO SCH (09:49)
[2016-12-24] MEDS: NICOTINE 21 MG/24 HR PATCH TOP SCH (09:49)
[2016-12-24] MEDS ORDERED: INSULIN DETEMIR 100 UNITS/ML VIAL SQ SCH (10:00)
--- NOTE | 2016-12-24 11:54 | HHI.DS ---
Discharge Summary Admission Date Dec 18, 2016 at 13:51 Discharge Date: Dec 24, 2016 Admitting Diagnosis respiratory failure, fall, head injury, laceration, COPD exacerbatio (1) Respiratory acidosis ICD Code: E87.2 Diagnosis: Principal (2) Respiratory failure ICD Code: J96.90 Diagnosis: Principal (3) Head injury ICD Code: S09.90XA Diagnosis: Principal (4) Fall ICD Code: W19.XXXA Diagnosis: Principal (5) Laceration of forehead, left, complicated ICD Code: S01.81XA Diagnosis: Principal (6) Coronary artery disease ICD Code: I25.10 Diagnosis: Principal (7) Depression ICD Code: F32.9 Diagnosis: Principal (8) COPD (chronic obstructive pulmonary disease) ICD Code: J44.9 Diagnosis: Principal (9) Dyslipidemia ICD Code: E78.5 Diagnosis: Principal (10) Peripheral vascular disease ICD Code: I73.9 Diagnosis: Principal (11) Diabetes ICD Code: E11.9 Diagnosis: Principal (12) History of coronary artery bypass graft ICD Code: Z95.1 Diagnosis: Principal (13) History of AAA (abdominal aortic aneurysm) repair ICD Code: Z98.890 Diagnosis: Principal Procedures Intubation/ extubation Brief History - From Admission 66-year-old male. Date of admission 12/18/2016. Past medical history includes hypertension, dyslipidemia, COPD oxygen dependent at night, depression , diabetes mellitus peripheral vascular disease with history of a CABG and AAA repair and left leg bypass?. He presented to [facility] ED with history of head injury from a fall. Patient says that she was going to sit down in a chair when he lost control and fell forward and hit his head on another chair in front of him. His oxygen saturation was 86% on room air and with 2 L of nasal cannula continues to be 88%. He is answering questions appropriately. However his eyes are closed and opens when I talk to him. Patient is on Plavix. Upon asking he said he had a fever last night but did not take temperature. Patient is a 5 cm aspiration sedation the ED he received his tetanus shot. Coronary records, patient became more short of breath. Stat CT head revealed no acute intracranial findings. CBC/BMP: 12/21/16 0725 12/23/16 0517 Significant Findings Laboratory Tests Test 12/23/16 12/23/16 05:17 11:32 Chloride Level 94 MEQ/L (98-107) Carbon Dioxide Level 36.5 MEQ/L (21.0-32.0) Blood Urea Nitrogen 26 MG/DL (7-18) Estimat Glomerular Filtration 83 ML/MIN (>89) Rate Random Glucose 158 MG/DL (74-106) Blood Gas HCO3 35 mmol/L (22-26) Blood Gas Base Excess 9.9 mmol/L (-2-2) Arterial Blood Partial 56 mmHg (38-42) Pressure CO2 Arterial Blood Oxygen Content 22.5 Vol % (12.0-20.0) Blood Gas Hemoglobin 17.5 G/DL (12.0-16.0) Imaging Last Impressions Chest X-Ray 12/20/16 0600 Signed Impressions: Service Date/Time: Tuesday, December 20, 2016 03:53 - CONCLUSION: 1. Cardiomegaly 2. Left lower lobe atelectasis versus pneumonia. Small left effusion. This is new when compared with the prior exam. Calos White MD Upper Extremity Ultrasound 12/19/16 0000 Signed Impressions: Service Date/Time: Monday, December 19, 2016 17:57 - CONCLUSION: 1. No thrombus identified. Right basilic vein not clearly visualized. Tuan Rothman MD Lower Extremity Ultrasound 12/18/16 0000 Signed Impressions: Service Date/Time: Sunday, December 18, 2016 15:58 - CONCLUSION: 1. Negative for deep venous thrombosis. 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 Tuan Rothman MD Head CT 12/18/16 0000 Signed Impressions: Service Date/Time: Sunday, December 18, 2016 12:29 - CONCLUSION: No acute intracranial disease. Teodoro Lawson MD CT Angiography 12/18/16 0000 Signed Impressions: Service Date/Time: Sunday, December 18, 2016 17:46 - CONCLUSION: 1. Negative for pulmonary embolus. 2. Basilar and dependent atelectasis in both lungs. 3. Endotracheal tube and nasogastric tube in satisfactory position. Tuan Rothman MD Brain MRI 12/18/16 0000 Signed Impressions: Service Date/Time: Sunday, December 18, 2016 18:09 - CONCLUSION: 1. Mild signal abnormalities in the periventricular white matter and in the brainstem characteristic of chronic ischemic changes. No mass, hemorrhage or shift. No recent infarction. Tuan Rothman MD Abdomen Ultrasound 12/18/16 0000 Signed Impressions: Service Date/Time: Sunday, December 18, 2016 15:38 - CONCLUSION: 1. Enlarged fatty liver. 2. No free fluid. Multiple renal cysts. No gallstones. Tuan Rothman MD PE at Discharge GENERAL: No acute distress, resting comfortably. SKIN: Warm and dry. 5cm laceration above left eye nylon sutured (12/19) HEAD: Normocephalic. EYES: Pupils equal and round 3 mm bilaterally and reactive. No scleral icterus. No injection or drainage. ENT: No nasal bleeding or discharge. Mucous membranes pink and moist. NECK: Trachea midline. No JVD. CARDIOVASCULAR: Regular rate and rhythm. S1, S2. No S4. 2/6 systolic murmur throughout the precordium RESPIRATORY: Crackles at the bases. Breath sounds equal bilaterally. GASTROINTESTINAL: Abdomen soft, protuberant non-tender, nondistended. Old well- healed midline scar from xiphoid process to suprapubic region noted. MUSCULOSKELETAL: Extremities with TR peripheral edema. NEUROLOGICAL: Alert and oriented. Moving all 4 extremities. PSYCH: Mood and affect appropriate. Pt update on day of discharge The patient said he had to go home today. He said he had to go to [facility] to help his with the store because the stress has been getting to her. He said he would be willing to leave AGAINST MEDICAL ADVICE. He said that he understood why he was being kept in the hospital and he knew the adverse outcomes that could result from leaving the hospital too early. He understood the risks and decided to leave AMA anyways. Discussed with nursing. Hospital Course Acute hypoxemic hypercapnic respiratory failure The pt has a history of COPD and MARCIA, on 3L NC at home. Patient was placed on BiPAP and given 0.5 mg Ativan IV, 40 mg Lasix IV, 125 mg IV Solu-Medrol followed by 3 DuoNeb therapies. Chest x-ray revealed no acute cardio pulmonary findings. Patient was intubated using 20 mg etomidate and 100 mg succinylcholine. Patient was then sedated on the ventilator and on 30 mg/kg/m of propofol drip. CPAP trials were initiated and the pt was extubated. CTA chest negative for PE. CXR 12/20-left lower lobe atelectasis, small left effusion. Echo with EF 45-50%. He has peripheral edema. Pulmonology was consulted. He received DuoNeb therapy every 4 hours and as needed as well as Pulmicort twice a day. He was placed on Solu-Medrol, which was being weaned. He was continued on an aggressive pulmonary toilet-incentive spirometry, Acapella, EZPAP. He was placed on Lasix 40 mg IV BID. He worked with physical therapy. He still required 5L NC and was satting in the high 80s/ low 90s. He demanded to leave the hospital. He was told how unsafe it was for him to leave the hospital at this point requiring so much oxygen. He said he had an oxygen machine and he was going to wear it 24 hours a day, although generally he wears oxygen only at night. The patient was told the reasons why he was hospitalized and why he needed to still get further treatment and the patient voiced understanding and did have capacity to make the decision to leave [facility]. The patient was given prescriptions for steroids, Lasix and breathing treatments. He said he will follow-up with his doctors in [facility]. Trauma The pt had sutures for facial laceration. CT head without contrast 12/18 revealed no acute cranial findings. MRI 12/19 brain: chronic ischemic changes, no mass hemorrhage or shift; No recent infarction. He worked with physical therapy. He received pain control as needed with a bowel regimen. CAD/ PVD/ AAA repair EKG revealed normal sinus rhythm; Left axis deviation; Left bundle branch block. Troponins WNL. 2-D echo 12/19-EF 45-50%, RV dilated. He was continued on a cardiac regimen. Diabetes mellitus On Januvia and Glucotrol as an outpt. He was placed on sliding scale insulin along with Accu-Cheks. He will resume his home meds on discharge. Fever The pt was started on Cefepime/Zithromax empirically. Cultures negative. He completed 7 days of antibiotics. Pt Condition on Discharge: Stable Discharge Disposition: Discharge Home Discharge Time: > 30 minutes Discharge Instructions DIET: Follow Instructions for: Diabetic Diet Follow up Referrals: Cardiology - 2-3 Days PCP Follow-up - 2-3 Days Pulmonology - 2-3 Days New Medications: Albuterol 18 GM Inh (Ventolin Hfa 18 GM Inh) 90 Mcg/Act Aer 2 PUFF INH Q4H PRN SHORTNESS OF BREATH #1 Ref 0 INHALER Furosemide (Lasix) 40 Mg Tab 40 MG PO BID CHF #14 Ref 0 TAB Potassium Chloride ER (Potassium Chloride ER) 20 Meq Tab 20 MEQ PO BID Electrolyte Replacement #14 Ref 0 TAB Prednisone (48) 10 mg tab Dose Pack (Prednisone (48) 10 mg tab Dose Pack) 10 Mg Dspk 10 MG PO DIRECTED Inflammation #1 Ref 0 DSPK Budesonide Neb (Pulmicort Respules) 0.5 Mg/2 Ml Neb 0.5 MG NEB Q12HR NEB COPD #1 INHALER Nicotine Patch (Nicotine Patch) 21 Mg/24 Hr Patch 1 PATCH TOP DAILY SMOKING #30 PATCH Continued Medications: Clopidogrel (Clopidogrel) 75 Mg Tab 75 MG PO DAILY Blood Clot Prevention #30 Ref 0 TAB Escitalopram (Lexapro) Unknown Strength Tab 10 MG PO DAILY #30 Ref 0 TAB Glipizide ER (Glucotrol XL) 2.5 Mg Delores 5 MG PO DAILY Take with breakfast or first main meal of the day Blood Sugar Management #30 Ref 0 TAB Glipizide ER (Glucotrol XL) 2.5 Mg Delores 2.5 MG PO HS Take with breakfast or first main meal of the day Blood Sugar Management #30 Ref 0 TAB Losartan (Cozaar) 25 Mg Tab 25 MG PO DAILY Blood Pressure Management #30 Ref 0 TAB Sitagliptin (Januvia) 100 Mg Tab 100 MG PO DAILY Blood Sugar Management #30 Ref 0 TAB Pato Atkins DO Dec 24, 2016 11:54
[2016-12-24 12:00] VITALS: BP 142/65; PULSE 82; RESP 20; TEMP 97.1; O2SAT 89
== END 2016-12-24 12:24 | disposition left against medical advice (07) | DRG 208 ==
LOC: EDSEX → NEPE 10:14 → NEDA 13:51 → HIME 18:40 → HOCB 12-23 15:08
PROVIDERS: ADMIT Internal Medicine Critical Care Medicine; ATTEND Hospitalist
PROC: 5A1945Z Respiratory Ventilation, 24-96 Consecutive Hours (ICD-10-PCS; principal; 2016-12-18)
PROC: 0BH17EZ Insertion of Endotracheal Airway into Trachea, Via Natural or Artificial Opening (ICD-10-PCS; 2016-12-18)
PROC: 0HQ1XZZ Repair Face Skin, External Approach (ICD-10-PCS; 2016-12-18)
PROC: 5A09357 Assistance with Respiratory Ventilation, Less than 24 Consecutive Hours, Continuous Positive Airway Pressure (ICD-10-PCS; 2016-12-18)
DX: J96.01 Acute respiratory failure with hypoxia (principal); E87.2 Acidosis; E11.51 Type 2 diabetes mellitus with diabetic peripheral angiopathy without gangrene; J44.9 Chronic obstructive pulmonary disease, unspecified; Z99.81 Dependence on supplemental oxygen; S01.81XA Laceration without foreign body of other part of head, initial encounter; I10 Essential (primary) hypertension; J96.02 Acute respiratory failure with hypercapnia; R50.9 Fever, unspecified; R60.0 Localized edema; G47.33 Obstructive sleep apnea (adult) (pediatric); I25.10 Atherosclerotic heart disease of native coronary artery without angina pectoris; E78.5 Hyperlipidemia, unspecified; I44.7 Left bundle-branch block, unspecified; F32.9 Major depressive disorder, single episode, unspecified; W07.XXXA Fall from chair, initial encounter; Z95.1 Presence of aortocoronary bypass graft; Z95.5 Presence of coronary angioplasty implant and graft; Z79.84 Long term (current) use of oral hypoglycemic drugs; Z91.81 History of falling; Z91.19 Patient's noncompliance with other medical treatment and regimen; Z87.891 Personal history of nicotine dependence
CPT/HCPCS: 12032; 31500; 36600; 51702; 70450; 70551; 71010; 71275; 76700; 80048; 80053; 80076; 81001; 82140; 82805; 82948; 83605; 83690; 83735; 83880; 84100; 84443; 84484; 85025; 85027; 85610; 85730; 87040; 87086; 87449; 87641; 87804; 90471; 90714; 90715; 93005; 93306; 93970; 94002; 94003; 94150; 94640; 94664; 94667; 94668; 96374; 96375; C9113; J0330; J0456; J0692; J1644; J1940; J2060; J2920; J2930; J3010; J7030; J7050; J7613; J7626; Q9967